=== PATIENT | female | born 1930 | race Caucasian/White ===

== ENCOUNTER 2016-11-27 22:08 | Observation (INO) | payer MEDICARE, OTHER ==
[2016-11-27] MEDS ORDERED: Sodium Chloride 0.9% 10 ML Syringe FLUSH PRN (22:50)
[2016-11-27] MEDS ORDERED: HYDROmorphone 0.5 MG/0.5 ML Syringe IVPUSH ONE (22:54)
--- NOTE | 2016-11-28 00:22 | EDM.PDOC ---
ED HPI GENERAL MEDICAL PROBLEM - General Chief Complaint: Lower Extremity Injury/Pain Stated Complaint: [facility] Time Seen by Provider: 11/27/16 22:22 Source of Information: Reports: Patient, EMS, Family History Limitations: Reports: No Limitations - History of Present Illness INITIAL COMMENTS - FREE TEXT/NARRATIVE: The patient was at home today and her right knee gave out and she fell backward. She did not hit her head and she has no headache or LOC. She denies any neck or back pain but she does have pain to both hips, knees and her left ankle. She recently saw Dr Rowley for bilateral wrist and hand pain. He is working her up for carpal tunnel syndrome. She has severe arthritis in her right knee. She has constant pain to her right leg. She denies fever, chills, chest pain, shortness of breath, nausea, vomiting or abdominal pain. Onset: Sudden Duration: Hour(s): (4pm) Location: Reports: Upper Extremity, Right (hip and knee), Lower Extremity, Left (hip, knee and ankle) Quality: Reports: Sharp Severity: Moderate Improves with: Reports: None Worsens with: Reports: None Context: Reports: Other (Her right knee gave out and she fell backward) Associated Symptoms: Reports: No Other Symptoms Left Feet Pain Score (Numeric/FACES): 9 - Related Data Allergies Allergy/AdvReac Type Severity Reaction Status Date / Time No Known Allergies Allergy Verified 11/27/16 22:13 Home Meds: Home Meds Bisacodyl [Dulcolax] 5 mg PO DAILY PRN 09/01/15 [History] Multivitamin [Multi-Vitamin Daily] 1 each PO DAILY 09/01/15 [History] Omeprazole 20 mg PO PCDINNER 09/01/15 [History] Potassium Chloride 20 meq PO 0700,1700 09/01/15 [History] Sennosides [Natural Vegetable Laxative] 8.6 mg PO BEDTIME PRN 09/01/15 [History] Apixaban [Eliquis] 2.5 mg PO BID 10/27/15 [History] Diltiazem [Cardizem CD] 180 mg PO DAILY 10/27/15 [History] Losartan [Cozaar] 25 mg PO DAILY 10/27/15 [History] LORazepam [Ativan] 1 mg PO Q6H PRN 12/15/15 [History] Torsemide [Demadex] 20 mg PO DAILY 12/15/15 [History] Colchicine [Colcrys] 0.3 mg PO DAILY #15 tablet 12/19/15 [Rx] Metoprolol Succinate [Toprol XL] 25 mg PO BID 03/19/16 [History] Naproxen [Naprosyn] 250 mg PO Q12HR PRN #10 tablet 03/19/16 [Rx] oxyCODONE HCl/Acetaminophen [oxyCODONE-Acetaminophen 5-325] 5 - 325 mg PO Q6H PRN 03/19/16 [History] Past Medical History HEENT History: Reports: Hard of Hearing, Impaired Vision Other HEENT History: has glasses "but I don't wear them very often". Glasses not brought to the hospital. 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: Musculoskeletal History: Reports: Back Pain, Chronic Other Musculoskeletal History: Chronic knee pain Psychiatric History: Reports: Other (See Below) Other Psychiatric History: pt has been on chronic pain medicine due to pain in knee Endocrine/Metabolic History: Reports: Diabetes, Type II - Infectious Disease History Infectious Disease History: Reports: Chicken Pox, Measles - Past Surgical History HEENT Surgical History: Reports: Cataract Surgery GI Surgical History: Reports: Appendectomy, Cholecystectomy Female Surgical History: Reports: Hysterectomy Musculoskeletal Surgical History: Reports: Arthroscopic Knee, Hip Replacement, Knee Replacement, Shoulder Surgery Social & Family History - Family History HEENT: Reports: None Musculoskeletal: Reports: Osteoarthritis Endocrine/Metabolic: Reports: Diabetes, Type I Oncologic: Reports: Bladder, Other (See Below) Other Oncologic Family History: 2 brothers and 1 sister had cancer, but unsure of type - Tobacco Use Smoking Status *Q: Never Smoker Second Hand Smoke Exposure: No - Caffeine Use Caffeine Use: Reports: Coffee - Recreational Drug Use Recreational Drug Use: No - Living Situation & Occupation Living situation: Reports: Occupation: Retired Review of Systems - Review of Systems Review Of Systems: See Below Constitutional: Reports: No Symptoms Eyes: Reports: No Symptoms Ears: Reports: No Symptoms Nose: Reports: No Symptoms Mouth/Throat: Reports: No Symptoms Respiratory: Reports: No Symptoms Cardiovascular: Reports: No Symptoms GI/Abdominal: Reports: No Symptoms Genitourinary: Reports: No Symptoms Musculoskeletal: Reports: Other (Bilateral hip and knee pain and left ankle pain ) ED EXAM, GENERAL - Physical Exam Exam: See Below Exam Limited By: No Limitations General Appearance: Alert, No Apparent Distress Ears: Normal External Exam Nose: Normal Inspection Head: Atraumatic, Normocephalic Neck: Normal Inspection Respiratory/Chest: No Respiratory Distress, Lungs Clear, Normal Breath Sounds Cardiovascular: Regular Rate, Rhythm, No Edema, No Murmur GI/Abdominal: Soft, Non-Tender, No Organomegaly, No Mass Extremities: Other (Pain upon palpation to both hips and both knees. She has pain upon palaption, ai and ecchymosis to her left ankle. She has good sensation and pulses distally.) Course - Vital Signs Last Recorded V/S: Last Vital Signs Temp 98.5 F 11/27/16 22:13 Pulse 91 11/27/16 22:13 Resp 16 11/27/16 22:13 BP 162/83 H 11/27/16 22:13 Pulse Ox 93 L 11/27/16 22:13 - Orders/Labs/Meds Orders: Active Orders 24 hr Category Date Time Status Peripheral IV Care [RC] . DIRECTED Care 11/27/16 22:51 Active Ankle Min 3V Lt [CR] Stat Exams 11/27/16 22:52 Taken Femur Min 2V Bi [CR] Stat Exams 11/27/16 22:52 Taken Pelvis 1V or 2V [CR] Stat Exams 11/27/16 22:53 Taken UA W/MICROSCOPIC [URIN] Stat Lab 11/27/16 23:56 Results Sodium Chloride 0.9% [Saline Flush] Med 11/27/16 22:50 Active 10 ml FLUSH ASDIRECTED PRN Peripheral IV Insertion Adult [OM.PC] Stat Oth 11/27/16 22:50 Ordered Medication Orders Sodium Chloride (Saline Flush) 10 ml FLUSH ASDIRECTED PRN PRN Reason: Keep Vein Open Last Admin: 11/27/16 23:04 Dose: 10 ml Labs: Laboratory Tests 11/27/16 11/27/16 11/27/16 Range/Units 23:10 23:10 23:10 WBC 12.47 H (3.98-10.04) K/mm3 RBC 4.33 (3.98-5.22) M/mm3 Hgb 14.9 (11.2-15.7) gm/L Hct 42.7 (34.1-44.9) % MCV 98.6 H (79.4-94.8) fl MCH 34.4 H (25.6-32.2) pg MCHC 34.9 (32.2-35.5) g/dl RDW Std Deviation 47.1 H (36.4-46.3) fL Plt Count 207 (182-369) K/mm3 MPV 9.7 (9.4-12.3) fl Neut % (Auto) 55.8 (34.0-71.1) % Lymph % (Auto) 29.7 (19.3-51.7) % [place] % (Auto) 11.8 (4.7-12.5) % Eos % (Auto) 1.8 (0.7-5.8) Baso % (Auto) 0.6 (0.1-1.2) % Neut # (Auto) 6.95 H (1.56-6.13) K/mm3 Lymph # (Auto) 3.70 (1.18-3.74) K/mm3 Davidson # (Auto) 1.47 H (0.24-0.36) K/mm3 Eos # (Auto) 0.23 (0.04-0.36) K/mm3 Baso # (Auto) 0.08 (0.01-0.08) K/mm3 ESR 9 (0-20) mm/hr Sodium 141 (136-145) mEq/L Potassium 3.6 (3.5-5.1) mEq/L Chloride 106 (98-107) mEq/L Carbon Dioxide 25 (21-32) mEq/L Anion Gap 13.6 (5-15) BUN 24 H (7-18) mg/dL Creatinine 1.7 H (0.55-1.02) mg/dL Est Cr Clr Drug Dosing 19.65 mL/min Estimated GFR (MDRD) 28 (>60) mL/min BUN/Creatinine Ratio 14.1 (14-18) Glucose 138 H (83-115) mg/dL Calcium 9.1 (8.5-10.1) mg/dL Total Bilirubin 0.4 (0.2-1.0) mg/dL AST 28 (15-37) U/L ALT 41 (14-59) U/L Alkaline Phosphatase 62 (46-116) U/L C-Reactive Protein < 0.2 (<1.0) mg/dL Total Protein 7.2 (6.4-8.2) g/dl Albumin 3.6 (3.4-5.0) g/dl Globulin 3.6 gm/dL Albumin/Globulin Ratio 1.0 (1-2) Urine Color (Yellow) Urine Appearance (Clear) Urine pH (5.0-8.0) Ur Specific Leonard (1.005-1.030) Urine Protein (Negative) Urine Glucose (UA) (Negative) Urine Ketones (Negative) Urine Occult Blood (Negative) Urine Nitrite (Negative) Urine Bilirubin (Negative) Urine Urobilinogen (0.2-1.0) Ur Leukocyte Esterase (Negative) Rheumatoid Factor Scrn (NEGATIVE) 11/27/16 11/27/16 Range/Units 23:10 23:56 WBC (3.98-10.04) K/mm3 RBC (3.98-5.22) M/mm3 Hgb (11.2-15.7) gm/L Hct (34.1-44.9) % MCV (79.4-94.8) fl MCH (25.6-32.2) pg MCHC (32.2-35.5) g/dl RDW Std Deviation (36.4-46.3) fL Plt Count (182-369) K/mm3 MPV (9.4-12.3) fl Neut % (Auto) (34.0-71.1) % Lymph % (Auto) (19.3-51.7) % Davidson % (Auto) (4.7-12.5) % Eos % (Auto) (0.7-5.8) Baso % (Auto) (0.1-1.2) % Neut # (Auto) (1.56-6.13) K/mm3 Lymph # (Auto) (1.18-3.74) K/mm3 Davidson # (Auto) (0.24-0.36) K/mm3 Eos # (Auto) (0.04-0.36) K/mm3 Baso # (Auto) (0.01-0.08) K/mm3 ESR (0-20) mm/hr Sodium (136-145) mEq/L Potassium (3.5-5.1) mEq/L Chloride (98-107) mEq/L Carbon Dioxide (21-32) mEq/L Anion Gap (5-15) BUN (7-18) mg/dL Creatinine (0.55-1.02) mg/dL Est Cr Clr Drug Dosing mL/min Estimated GFR (MDRD) (>60) mL/min BUN/Creatinine Ratio (14-18) Glucose (83-115) mg/dL Calcium (8.5-10.1) mg/dL Total Bilirubin (0.2-1.0) mg/dL AST (15-37) U/L ALT (14-59) U/L Alkaline Phosphatase (46-116) U/L C-Reactive Protein (<1.0) mg/dL Total Protein (6.4-8.2) g/dl Albumin (3.4-5.0) g/dl Globulin gm/dL Albumin/Globulin Ratio (1-2) Urine Color Yellow (Yellow) Urine Appearance Clear (Clear) Urine pH 5.5 (5.0-8.0) Ur Specific Leonard 1.015 (1.005-1.030) Urine Protein Negative (Negative) Urine Glucose (UA) Negative (Negative) Urine Ketones Negative (Negative) Urine Occult Blood 1+ H (Negative) Urine Nitrite Negative (Negative) Urine Bilirubin Negative (Negative) Urine Urobilinogen 0.2 (0.2-1.0) Ur Leukocyte Esterase Negative (Negative) Rheumatoid Factor Scrn Negative (NEGATIVE) Meds: Medications Generic Name Dose Route Start Last Admin Trade Name Freq PRN Reason Stop Dose Admin Sodium Chloride 10 ml 11/27/16 22:50 11/27/16 23:04 Saline Flush FLUSH 10 ml ASDIRECTED PRN Administration Keep Vein Open Discontinued Medications Generic Name Dose Route Start Last Admin Trade Name Freq PRN Reason Stop Dose Admin Hydromorphone HCl 0.5 mg 11/27/16 22:54 11/27/16 23:03 Dilaudid IVPUSH 11/27/16 22:55 0.5 mg ONETIME ONE Administration - Re-Assessments/Exams Free Text/Narrative Re-Assessment/Exam: 11/28/16 00:21 I ordered an IV saline lock, dilaudid 0.5mg IV, labs and x-rays. 11/28/16 00:27 The x-ray of her pelvis was negative for fracture. The bilateral x-ray of her femurs show the hip and knee prosthesis on the right and arthritis to the left hip and knee with no fracture. He left ankle shows no fracture. Her WBC was elevated at 12.47. Her ESR and CRP were negative. Her creatinine was elevated at 1.7. Her rheumatoid factor was negative. Her UA shows no UTI. She feels better as long as she is not moving. I do not think at this point I can get her up to walk. I feel she will need to be admitted. I called Dr Low and he agreed to the admission. 11/28/16 00:41 With the dilaudid her oxygen saturations dropped and she needed 2L of oxygen per nasal cannula. Departure - Departure Time of Disposition: 00:45 Disposition: Refer to Observation Condition: Good Clinical Impression: Intractable pain, Osteoarthritis involving multiple joints on both sides of body, Renal insufficiency, Hypoxia Fall Qualifiers: Encounter type: initial encounter Qualified Code(s): W19.XXXA - Unspecified fall, initial encounter Left ankle sprain Qualifiers: Encounter type: initial encounter Involved ligament of ankle: unspecified ligament Qualified Code(s): S93.402A - Sprain of unspecified ligament of left ankle, initial encounter - Discharge Information Forms: ED Department Discharge - My Orders Last 24 Hours: My Active Orders 11/27/16 22:50 Sodium Chloride 0.9% [Saline Flush] 10 ml FLUSH ASDIRECTED PRN Peripheral IV Insertion Adult [OM.PC] Stat 11/27/16 22:51 Peripheral IV Care [RC] . DIRECTED 11/27/16 22:52 Ankle Min 3V Lt [CR] Stat Femur Min 2V Bi [CR] Stat 11/27/16 22:53 Pelvis 1V or 2V [CR] Stat 11/27/16 23:56 UA W/MICROSCOPIC [URIN] Stat - Assessment/Plan Last 24 Hours: My Active Orders 11/27/16 22:50 Sodium Chloride 0.9% [Saline Flush] 10 ml FLUSH ASDIRECTED PRN Peripheral IV Insertion Adult [OM.PC] Stat 11/27/16 22:51 Peripheral IV Care [RC] . DIRECTED 11/27/16 22:52 Ankle Min 3V Lt [CR] Stat Femur Min 2V Bi [CR] Stat 11/27/16 22:53 Pelvis 1V or 2V [CR] Stat 11/27/16 23:56 UA W/MICROSCOPIC [URIN] Stat
[2016-11-28] MEDS ORDERED: HYDROmorphone 0.5 MG/0.5 ML Syringe IVPUSH ONE (00:51)
[2016-11-28] MEDS ORDERED: Acetaminophen 325 MG Tab PO PRN ×2 (01:42→08:26)
[2016-11-28] MEDS: HYDROmorphone 0.5 MG/0.5 ML Syringe IVPUSH PRN ×5 (03:05→20:19)
--- NOTE | 2016-11-28 08:08 | CR ---
Left ankle: Four views of the left ankle were obtained. Comparison: No previous ankle study. Plantar spur is seen. Spur noted at the attachment of the Achilles tendon to the calcaneus. Vascular calcification is seen. Ankle mortise is symmetric. No discrete fracture, dislocation or other bony abnormality is seen. Impression: 1. Calcaneal spurs. 2. No acute bony abnormality is identified. Diagnostic code #2
--- NOTE | 2016-11-28 08:08 | CR ---
Pelvis: AP view of the pelvis was obtained. Comparison: No previous pelvis exam. Right hip prosthesis is seen. Minimal joint space narrowing is seen with left hip with minimal osteophytes. Mild degenerative change is partially visualized within the lower lumbar spine. Bony structures are osteopenic. No acute fracture or other abnormality is appreciated. Impression: 1. Incidental findings. Nothing acute is appreciated on AP pelvis study. Diagnostic code #2
--- NOTE | 2016-11-28 08:08 | CR ---
Bilateral femurs: AP and lateral views of both femurs were obtained. Comparison: No femur study. Right hip prosthesis is seen. Right knee prosthesis is noted. Mild vascular calcification is present. Mild degenerative change is seen within the left hip as well as medial joint space narrowing with the left knee with lateral and medial osteophytes noted within the left knee. Bony structures are somewhat osteopenic. No acute fracture or other abnormality is seen. Impression: 1. Right hip prosthesis and knee prosthesis. Degenerative change is noted within the left hip and left knee. 2. Nothing acute is appreciated on two-view bilateral femur study. Diagnostic code #2
--- NOTE | 2016-11-28 08:23 | PCM.HP ---
H&P History of Present Illness - General Date of Service: 11/28/16 Admit Problem/Dx: Admission Diagnosis/Problem Admission Diagnosis/Problem Fall Source of Information: Patient, Old Records, Provider, RN Notes Reviewed History Limitations: Reports: Altered Mental Status, Physical Impairment - History of Present Illness Initial Comments - Free Text/Narative: This is an 86 year-old elderly white female with past medical history of chronic atrial fibrillation on eliquis, hypertension, hyperlipidemia, gout, chronic shortness of breath, constipation, history of hemorrhoids, Advanced DJD/ OA, Osteoporosis, Chronic Pain Syndrome and DM2, who presented to the emergency department with complaints of lower extremity pain after she fell from a standing position. Per family, the patient's right knee gave out and right after that she fell backward. The incident took place while she was at home. She denies any prodromal symptoms. No loss of consciousness. She further denies any complaints of neck or back pain. However she admits to having hips, knees and left ankle pain. Patient carries a history of advanced DJD and severe OA. She has had surgeries on her right hip and knee in the past. Currently she is being evaluated for bilateral carpal tunnel syndrome. She has been scheduled to see Dr. Rowley for further evaluation her right knee. Patient is familiar to me from previous admission about a year ago elated to cellulitis and possible gout (hyperuricemia). Her initial workup in the emergency department shows a CBC significant for WBC of 12.47, and neutrophils of 6.95. Her ESR is 9 and CRP is < 0.2. Her chemistry is unremarkable except for BUN of 24, creatinine of 1.7 and BS of 138. Her rheumatoid factor is negative. UA is unremarkable for urinary tract infection. All her imaging studies revealed no acute abnormal findings. Patient is being admitted under observation for medical management of intractable pain status post fall and ankle sprain. She is full code. Left Feet Pain Score (Numeric/FACES): 9 Left Knee Pain Score (Numeric/FACES): 5 - Related Data Allergies/Adverse Reactions: Allergies Allergy/AdvReac Type Severity Reaction Status Date / Time No Known Allergies Allergy Verified 11/27/16 22:13 Home Medications: Home Meds Bisacodyl [Dulcolax] 5 mg PO DAILY PRN 09/01/15 [History] Multivitamin [Multi-Vitamin Daily] 1 each PO DAILY 09/01/15 [History] Omeprazole 20 mg PO PCDINNER 09/01/15 [History] Potassium Chloride 20 meq PO 0700,1700 09/01/15 [History] Sennosides [Natural Vegetable Laxative] 8.6 mg PO BEDTIME PRN 09/01/15 [History] Apixaban [Eliquis] 2.5 mg PO BID 10/27/15 [History] Diltiazem [Cardizem CD] 180 mg PO DAILY 10/27/15 [History] Losartan [Cozaar] 25 mg PO DAILY 10/27/15 [History] LORazepam [Ativan] 1 mg PO Q6H PRN 12/15/15 [History] Torsemide [Demadex] 20 mg PO DAILY 12/15/15 [History] Colchicine [Colcrys] 0.3 mg PO DAILY #15 tablet 12/19/15 [Rx] Metoprolol Succinate [Toprol XL] 25 mg PO BID 03/19/16 [History] oxyCODONE HCl/Acetaminophen [oxyCODONE-Acetaminophen 5-325] 5 - 325 mg PO Q6H PRN 03/19/16 [History] Past Medical History HEENT History: Reports: Hard of Hearing, Impaired Vision Other HEENT History: has glasses "but I don't wear them very often". Glasses not brought to the hospital. 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: Musculoskeletal History: Reports: Back Pain, Chronic Other Musculoskeletal History: Chronic knee pain Neurological History: Reports: Vertigo Psychiatric History: Reports: Anxiety, Other (See Below) Other Psychiatric History: pt has been on chronic pain medicine due to pain in knee and lorazepam for anxiety Endocrine/Metabolic History: Reports: Diabetes, Type II Hematologic History: Reports: None Immunologic History: Reports: None - Infectious Disease History Infectious Disease History: Reports: Chicken Pox, Measles - Past Surgical History Head Surgeries/Procedures: Reports: None HEENT Surgical History: Reports: Cataract Surgery Cardiovascular Surgical History: Reports: None Respiratory Surgical History: Reports: None GI Surgical History: Reports: Appendectomy, Cholecystectomy Female Surgical History: Reports: Hysterectomy Neurological Surgical History: Reports: C-Spine Musculoskeletal Surgical History: Reports: Arthroscopic Knee, Hip Replacement, Knee Replacement, Shoulder Surgery Social & Family History - Family History HEENT: Reports: None Cardiac: Reports: None Musculoskeletal: Reports: Osteoarthritis Endocrine/Metabolic: Reports: Diabetes, Type I Oncologic: Reports: Bladder, Other (See Below) Other Oncologic Family History: 2 brothers and 1 sister had cancer, but unsure of type - Tobacco Use Smoking Status *Q: Never Smoker Second Hand Smoke Exposure: No - Caffeine Use Caffeine Use: Reports: Coffee - Recreational Drug Use Recreational Drug Use: No Drug Use in Last 12 Months: No - Living Situation & Occupation Living situation: Reports: Occupation: Retired H&P Review of Systems - Review of Systems: Review Of Systems: See Below General: Reports: Weakness, Other (somewhat sedated ). Denies: Fever, Chills, Malaise, Fatigue, Night Sweats HEENT: Reports: No Symptoms Pulmonary: Denies: Shortness of Breath Cardiovascular: Denies: Chest Pain, Palpitations, Dyspnea on Exertion, Lightheadedness Gastrointestinal: Denies: Abdominal Pain, Nausea, Vomiting Genitourinary: Reports: No Symptoms Musculoskeletal: Reports: Hand Pain, Joint Pain, Other (left knee and ankle pain w/ edema) Skin: Denies: Cyanosis, Bruising, Erythema Psychiatric: Denies: Confusion, Depression, Agitation, Suicidal Ideation Neurological: Reports: Difficulty Walking, Weakness, Gait Disturbance. Denies: Confusion, Dizziness, Syncope Hematologic/Lymphatic: Reports: No Symptoms Immunologic: Reports: No Symptoms Exam - Exam Exam: See Below - Vital Signs Vital Signs: Last Vital Signs Temp 36.8 C 11/28/16 03:56 Pulse 72 11/28/16 03:56 Resp 14 11/28/16 03:56 BP 103/75 11/28/16 03:56 Pulse Ox 96 11/28/16 03:56 Weight: 87.543 kg - Exam General: Alert, Cooperative, Mild Distress HEENT: Conjunctiva Clear, EACs Clear, Hearing Intact, Mucosa Moist & [place], Nares Patent, Normal Nasal Septum, Posterior Pharynx Clear, Pupils Equal, Pupils Reactive, TMs Clear Neck: Supple, Trachea Midline, Full Range of Motion Lungs: Normal Respiratory Effort, Decreased Breath Sounds Cardiovascular: Regular Rate, Regular Rhythm Abdomen: Normal Bowel Sounds, Soft. No: Organomegaly, Peritoneal Signs, Tenderness (Female) Exam: Deferred Rectal (Female) Exam: Deferred Back Exam: Normal Inspection, Decreased Range of Motion, Vertebral Tenderness Extremities: Normal Inspection, Normal Pulses, Edema (at the ankle), Other ( right knee surgical car) Peripheral Pulses: 2+: Posterior Tibial (L), Posterior Tibial (R), Dorsalis Pedis (L), Dorsalis Pedis (R) Skin: Warm, Dry, Intact Neuro Extensive - Mental Status: Normal Mood/Affect, Memory Intact, Slow Response to Commands Neuro Extensive - Motor, Sensory, Reflexes: CN II-XII Intact (limited due to sedation from pain medication), Abnormal Gait Psychiatric: Normal Affect, Normal Mood. No: Suicidal Ideation, Homicidal Ideation, Hallucinations - Patient Data Result Diagrams: 11/27/16 23:10 11/27/16 23:10 *Q Meaningful Use (ADM) - VTE *Q VTE Criteria *Q: - Stroke *Q Stroke Criteria *Q: - AMI *Q AMI Criteria *Q: Problem List Initiated/Reviewed/Updated: Yes Orders Last 24hrs: Active Orders 24 hr Category Date Time Status Admission Status [Patient Status] [ADT] Routine ADT 11/28/16 03:53 Active Bedrest [RC] ASDIRECTED Care 11/28/16 01:48 Active Oxygen Therapy Adult [Oxygen Therapy] [RC] ASDIRECTED Care 11/28/16 03:24 Active Cardiac [Heart Healthy Diet] [DIET] Diet 11/28/16 Breakfast Active Acetaminophen [Tylenol] Med 11/28/16 01:42 Active 975 mg PO Q4H PRN HYDROmorphone [Dilaudid] Med 11/28/16 01:39 Active 0.5 mg IVPUSH Q2H PRN Medication Orders Acetaminophen (Tylenol) 975 mg PO Q4H PRN PRN Reason: Pain/Fever Hydromorphone HCl (Dilaudid) 0.5 mg IVPUSH Q2H PRN PRN Reason: Pain Last Admin: 11/28/16 06:22 Dose: 0.5 mg Admin: 11/28/16 03:05 Dose: 0.5 mg Sodium Chloride (Saline Flush) 10 ml FLUSH ASDIRECTED PRN PRN Reason: Keep Vein Open Last Admin: 11/27/16 23:04 Dose: 10 ml Assessment/Plan Comment:: Assessment/Plan: Acute: Acute on Chronic Pain/Intractable - S/p Fall - Risk Factors: Advanced DJD/OA - Pain Medication Left Knee DJD/OA - XR shows negative for acute fracture - Lidocaine patch daily Chronic Hip DJD/OA - Pelvis XR shows no acute fracture - Femur XR: Right Hip and Knee prostheses. No acute appreciated Left Ankle Sprain w/ mild edema - S/p Fall - XR 4 views: calcaneal spurs. No acute bony abnormality identified - Conservative management Gait Instability - Has weak left knee - Scheduled to see Dr. Rowley for further eval - PT/OT consult Chronic: A-Fib on Eliquis, HR controlled HTN HLD Constipation DJD/OA CKD Stage 4 Pain Syndrome DM2 Gout H/o Opioid Withdrawal Hc/o Bilateral CTS-currently being followed by Dr. Rowley Plan: Admit to OBS Routine AM labs Resume Home Meds High Fall Risk PT/OT consult SW/CM for d/c planning Neck MRI w/o contrast per family's request (she is scheduled to get it done in am as an outpatient) Code status:1
[2016-11-28] MEDS ORDERED: LORazepam 2 MG/ML MDV IV PRN (08:26)
[2016-11-28] MEDS ORDERED: Promethazine 12.5 MG in Sodium Chloride 0.9% 50 ML IV PRN (08:26)
[2016-11-28] MEDS ORDERED: Polyethylene Glycol 3350 Powder 17 GM Packet PO PRN (08:26)
[2016-11-28] MEDS ORDERED: Metoprolol Tartrate 5 MG/5 ML SDV IVPUSH PRN (08:26)
[2016-11-28] MEDS ORDERED: Bisacodyl 5 MG Tab PO PRN (08:26)
[2016-11-28] MEDS ORDERED: Albuterol 0.083% 2.5 MG/3 ML Neb Soln NEB PRN (08:26)
[2016-11-28] MEDS ORDERED: Ondansetron 4 MG/2 ML SDV IV PRN (08:26)
[2016-11-28] MEDS ORDERED: SENNOSIDES 8.6 MG PO PRN (08:30)
[2016-11-28] MEDS ORDERED: BISACODYL 5 MG PO PRN (08:30)
[2016-11-28] MEDS: Acetaminophen/HYDROcodone 325-5 MG Tab PO PRN ×2 (11:12→16:58)
[2016-11-28] MEDS: COLCHICINE 0.6 MG PO SCH (12:25)
[2016-11-28] MEDS: DILTIAZEM 180 MG PO SCH (12:26)
[2016-11-28] MEDS: ELIQUIS PO SCH ×2 (12:28→20:20)
[2016-11-28] MEDS: MULTIVITAMIN PO SCH (12:48)
[2016-11-28] MEDS: [UNRECOGNIZED DRUG - OTHER] PO SCH (12:48)
[2016-11-28] MEDS: LOSARTAN 25 MG PO SCH (12:48)
[2016-11-28] MEDS ORDERED: Lidocaine 5% 700 MG Patch TOP SCH (13:00)
[2016-11-28] MEDS: hydrALAZINE 20 MG/ML SDV IVPUSH PRN (16:58)
[2016-11-28] MEDS: Cyclobenzaprine 10 MG Tab PO PRN (22:19)
[2016-11-29] MEDS: Acetaminophen/HYDROcodone 325-5 MG Tab PO PRN ×4 (04:25→18:31)
[2016-11-29] MEDS: hydrALAZINE 20 MG/ML SDV IVPUSH PRN (05:34)
[2016-11-29] MEDS: COLCHICINE 0.6 MG PO SCH (08:14)
[2016-11-29] MEDS: DILTIAZEM 180 MG PO SCH (08:16)
[2016-11-29] MEDS: ELIQUIS PO SCH ×2 (08:17→20:13)
[2016-11-29] MEDS: MULTIVITAMIN PO SCH (08:21)
[2016-11-29] MEDS: [UNRECOGNIZED DRUG - OTHER] PO SCH (08:21)
[2016-11-29] MEDS: LOSARTAN 25 MG PO SCH (08:22)
--- NOTE | 2016-11-29 12:26 | PCM.PN ---
- General Info Date of Service: 11/29/16 Admission Dx/Problem (Free Text): Admission Diagnosis/Problem Admission Diagnosis/Problem Fall Subjective Update: Follow Up Functional Status: Reports: tolerating diet, urinating. Denies: pain controlled , new symptoms - Review of Systems General: Denies: Fever, Weakness, Fatigue, Malaise, Chills HEENT: Reports: no symptoms Pulmonary: Denies: shortness of breath Cardiovascular: Denies: Chest Pain Gastrointestinal: Denies: Abdominal pain, Nausea, Vomiting Genitourinary: Reports: no symptoms Musculoskeletal: Reports: neck pain, leg pain, joint pain (diffuse), other ( left ankle pain) Skin: Reports: bruising (left teresita) Neurological: Reports: Difficulty Walking, Gait Disturbance. Denies: Confusion , Weakness Psychiatric: Denies: depression, anxiety, agitation, hallucinations Systems Review Comment:: She is about the same. Her pain is fairly controlled. She was given lidocaine patch but developed burning sensation. She is tolerating low dose muscle relanxant. She has no other acute issues. - Patient Data Vitals - most recent: Last Vital Signs Temp 36.6 C 11/29/16 08:00 Pulse 66 11/29/16 08:00 Resp 16 11/29/16 08:00 BP 158/73 H 11/29/16 08:00 Pulse Ox 95 11/29/16 08:00 Weight - most recent: 87.543 kg I&O - last 24 hours: Intake & Output 11/28/16 11/29/16 11/29/16 22:59 06:59 14:59 Intake Total 680 950 90 Output Total 750 1050 Balance -70 -100 90 Lab Results last 24 hrs: Laboratory Results - last 24 hr 11/29/16 11/29/16 Range/Units 05:07 05:07 WBC 10.37 H (3.98-10.04) K/mm3 RBC 4.10 (3.98-5.22) M/mm3 Hgb 13.9 (11.2-15.7) gm/L Hct 41.0 (34.1-44.9) % MCV 100.0 H (79.4-94.8) fl MCH 33.9 H (25.6-32.2) pg MCHC 33.9 (32.2-35.5) g/dl RDW Std Deviation 48.7 H (36.4-46.3) fL Plt Count 198 (182-369) K/mm3 MPV 9.7 (9.4-12.3) fl Neut % (Auto) 48.7 (34.0-71.1) % Lymph % (Auto) 35.2 (19.3-51.7) % [place] % (Auto) 11.5 (4.7-12.5) % Eos % (Auto) 3.7 (0.7-5.8) Baso % (Auto) 0.6 (0.1-1.2) % Neut # (Auto) 5.06 (1.56-6.13) K/mm3 Lymph # (Auto) 3.65 (1.18-3.74) K/mm3 [place] # (Auto) 1.19 H (0.24-0.36) K/mm3 Eos # (Auto) 0.38 H (0.04-0.36) K/mm3 Baso # (Auto) 0.06 (0.01-0.08) K/mm3 Sodium 140 (136-145) mEq/L Potassium 3.5 (3.5-5.1) mEq/L Chloride 104 (98-107) mEq/L Carbon Dioxide 25 (21-32) mEq/L Anion Gap 14.5 (5-15) BUN 22 H (7-18) mg/dL Creatinine 1.6 H (0.55-1.02) mg/dL Est Cr Clr Drug Dosing 20.88 mL/min Estimated GFR (MDRD) 31 (>60) mL/min BUN/Creatinine Ratio 13.8 L (14-18) Glucose 130 H (83-115) mg/dL Calcium 9.0 (8.5-10.1) mg/dL Magnesium 1.6 L (1.8-2.4) mg/dl Med Orders - Current: Current Medications Acetaminophen (Tylenol) 650 mg PO Q4H PRN PRN Reason: Pain (Mild 1-3)/fever Hydrocodone Bitart/Acetaminophen ([place] 325-5 Mg) 1 tab PO Q4H PRN PRN Reason: Pain (moderate 4-6) Last Admin: 11/29/ 08:30 Dose: 1 tab Albuterol (Proventil Neb Soln) 2.5 mg NEB Q2H PRN PRN Reason: Shortness Of Breath/wheezing Bisacodyl (Dulcolax) 5 mg PO DAILY PRN PRN Reason: Constipation Cyclobenzaprine HCl (Flexeril) 5 mg PO TID PRN PRN Reason: Pain Last Admin: 11/28/16 22:19 Dose: 5 mg Diclofenac Sodium (Voltaren 1% Gel) 0 gm TOP QID [facility] Hydralazine HCl (Apresoline) 10 mg IVPUSH Q4H PRN PRN Reason: Hypertension Last Admin: 11/29/16 05:34 Dose: 10 mg Hydromorphone HCl (Dilaudid) 0.25 mg IVPUSH Q4H PRN PRN Reason: Pain (severe 7-10) Promethazine HCl 12.5 mg/ (Sodium Chloride) 50.5 mls @ 100 mls/hr IV Q6H PRN PRN Reason: Nausea/Vomiting Lorazepam (Ativan) 0.25 mg IV Q6H PRN PRN Reason: Anxiety Magnesium Oxide (Magnesium Oxide) 400 mg PO TID [facility] Stop: 11/29/16 21:01 Magnesium Sulfate (Pharmacy To Dose - Magnesium Replacement) 0 dose .XX ASDIRECTED PRN PRN Reason: RX TO MONITOR MAG LEVELS Metoprolol Tartrate (Lopressor) 5 mg IVPUSH Q4H PRN PRN Reason: Tachycardia Ondansetron HCl (Zofran) 4 mg IV Q6H PRN PRN Reason: Nausea/Vomiting Eliquis (Apixaban 2. (5 Mg)) 0 each PO BID [facility] Last Admin: 11/29/16 08:17 Dose: 1 each Colchicine [Colcrys] (0.6 Mg) 0 each PO DAILY [facility] Last Admin: 11/29/16 08:14 Dose: 0.5 each Diltiazem Er 180 Mg (Tablet) 0 each PO DAILY [facility] Last Admin: 11/29/16 08:16 Dose: 1 each Lorazepam 1 Mg 0 each PO Q6H PRN PRN Reason: jitters Losartan [Cozaar] 25 (Mg) 0 each PO DAILY [facility] Last Admin: 11/29/16 08:22 Dose: 1 each Metoprolol Tartrate (50 Mg) 0 each PO BID [facility] Last Admin: 11/29/16 08:21 Dose: 0.5 each Women's One A Day (Multivitamin Tab) 0 each PO DAILY [facility] Last Admin: 11/29/16 08:21 Dose: 1 each Omeprazole 20 Mg 0 each PO PCDINNER [facility] Last Admin: 11/28/16 18:03 Dose: 1 each Potassium Chloride (20 Meq) 0 each PO BIDMEALS [facility] Last Admin: 11/29/16 06:12 Dose: 1 each Sennosides [Natural Vegetable Laxative] 8.6 Mg 0 each PO BEDTIME PRN PRN Reason: Constipation Torsemide 20 Mg 0 each PO DAILY [facility] Last Admin: 11/29/16 08:19 Dose: 1 each Potassium Chloride (20 Meq Tabs) 0 each PO BID@1200,1700 [facility] Stop: 11/29/16 17:01 Polyethylene Glycol (Miralax) 17 gm PO DAILY PRN PRN Reason: Constipation Potassium Chloride (Pharmacy To Dose - Potassium Replacement) 0 dose .XX ASDIRECTED PRN PRN Reason: RX TO MONITOR K LEVELS Senna/Docusate Sodium (Senna Plus) 1 tab PO BID PRN PRN Reason: Constipation Sodium Chloride (Saline Flush) 10 ml FLUSH ASDIRECTED PRN PRN Reason: Keep Vein Open Last Admin: 11/27/16 23:04 Dose: 10 ml Temazepam (Restoril) 7.5 mg PO BEDTIME PRN PRN Reason: Sleep Discontinued Medications Acetaminophen (Tylenol) 975 mg PO Q4H PRN PRN Reason: Pain/Fever Hydromorphone HCl (Dilaudid) 0.5 mg IVPUSH ONETIME ONE Stop: 11/27/16 22:55 Last Admin: 11/27/16 23:03 Dose: 0.5 mg Hydromorphone HCl (Dilaudid) 0.5 mg IVPUSH ONETIME ONE Stop: 11/28/16 00:52 Last Admin: 11/28/16 00:56 Dose: 0.5 mg Hydromorphone HCl (Dilaudid) 0.5 mg IVPUSH Q2H PRN PRN Reason: Pain Last Admin: 11/28/16 20:19 Dose: 0.5 mg Lidocaine (Lidoderm 5%) 700 mg TOP Q24H [facility] Last Admin: 11/28/16 14:23 Dose: 700 mg Miscellaneous Information (Remove Patch) 0 ea TRDERM Q24H [facility] Non-Formulary Medication (Bisacodyl [Dulcolax]) 5 mg PO DAILY PRN PRN Reason: Constipation - Exam General: alert, oriented, cooperative, no acute distress HEENT: Pupils equal, Pupils reactive, EOMI, Mucous membr. moist/pink Neck: trachea midline, no JVD, no thyromegaly Lungs: Clear to auscultation, Normal respiratory effort, Decreased breath sounds Cardiovascular: Regular Rate, Regular Rhythm Abdomen: bowel sounds present, soft, no tenderness, no distension (Female) Exam: Deferred Back Exam: Normal Inspection, Decreased Range of Motion Extremities: no edema, normal pulses, no tenderness/swelling, no clubbing, no cyanosis, no calf tenderness Peripheral Pulses: 2+: Dorsalis Pedis (L), Dorsalis Pedis (R) Skin: warm, dry, intact Neurological: no new focal deficit Psy/Mental Status: alert, normal affect, normal mood - Problem List Review Problem List Initiated/Reviewed/Updated: Yes - My Orders Last 24 Hours: My Active Orders 11/28/16 12:00 Patient's Own Medication [Ptom] 0 each PO BID Patient's Own Medication [Ptom] 0 each PO BID Patient's Own Medication [Ptom] 0 each PO BIDMEALS Patient's Own Medication [Ptom] 0 each PO DAILY Patient's Own Medication [Ptom] 0 each PO DAILY Patient's Own Medication [Ptom] 0 each PO DAILY Patient's Own Medication [Ptom] 0 each PO DAILY Patient's Own Medication [Ptom] 0 each PO DAILY Patient's Own Medication [Ptom] 0 each PO Q6H PRN 11/28/16 19:00 Patient's Own Medication [Ptom] 0 each PO PCDINNER 11/28/16 21:00 Temazepam [Restoril] 7.5 mg PO BEDTIME PRN 11/28/16 21:59 Cyclobenzaprine [Flexeril] 5 mg PO TID PRN 11/29/16 10:30 Magnesium Rep Pharmacy to Dose [Pharmacy to Dose - Magnesium Replacement] 0 dose .XX ASDIRECTED PRN Potassium Rep Pharmacy to Dose [Pharmacy to Dose - Potassium Replacement] 0 dose .XX ASDIRECTED PRN 11/29/16 11:00 Magnesium Oxide 400 mg PO TID 11/29/16 11:48 Ice Therapy [OM.PC] Routine 11/29/16 12:00 Patient's Own Medication [Ptom] 0 each PO BID@1200,1700 11/29/16 13:00 Diclofenac Sodium [Voltaren 1% Gel] 0 gm TOP QID 11/29/16 14:30 Cervical Spine Comp wo Cont [MR] Routine - Plan Plan:: Assessment/Plan: Acute: Acute on Chronic Pain/Intractable - S/p Fall - Risk Factors: Advanced DJD/OA - Pain Medication Left Knee DJD/OA - XR shows negative for acute fracture - Discontinued Lidocaine patch - Will try voltaren gel topical Chronic Hip DJD/OA - Pelvis XR shows no acute fracture - Femur XR: Right Hip and Knee prostheses. No acute appreciated Left Ankle Sprain w/ mild edema and bruising - S/p Fall - XR 4 views: calcaneal spurs. No acute bony abnormality identified - Conservative management: leg elevation and cold compress to apply TID Gait Instability - Has weak left knee - Scheduled to see Dr. 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 Graves in [place]. My understanding was, she was tried on multiple medications in the past, even with intra-articular injection but w/o much success. She was also put on low dose fentanyl patch but developed withdrawal to it. She has been off fentanyl for over a year now.
[2016-11-29] MEDS: Magnesium Oxide 400 MG Tab PO SCH ×3 (12:38→20:11)
[2016-11-29] MEDS: POTASSIUM CHLORIDE 20 MEQ PO SCH ×2 (12:40→16:19)
[2016-11-29] MEDS: Diclofenac Sodium 1% Gel 100 GM Tube TOP SCH ×3 (12:41→20:15)
[2016-11-29] MEDS: HYDROmorphone 0.5 MG/0.5 ML Syringe IVPUSH PRN (13:52)
--- NOTE | 2016-11-29 15:18 | MR ---
MRI cervical spine Technique: T2 gradient echo axial images were obtained from above the C2-C3 disc inferiorly through C7-T1 discs. T1 and T2-weighted sagittal images were obtained through the cervical spine. Comparison: No previous cervical spine imaging. Findings: C1-C2: Neural foramina are patent. Bony spur appears to be off the right side of the lateral mass projecting into the right anterior thecal sac. This indents the thecal sac but does appear to cause any cervical cord impingement. C3-C4: Previous surgery at C3-C4 causes artifact. Neural foramina are not well seen due to this artifact but I believe that the left side is patent. There may be minimal right-sided neural foraminal stenosis. No central canal stenosis is seen. C4-C5: Mild disc space narrowing is seen. Posterior spurring and diffuse posterior disc bulge is seen. Mild to moderate central canal stenosis is seen. Neural foramina are felt to be patent. C5-C6: Mild diffuse posterior disc bulge is seen effacing the anterior thecal sac. No central canal stenosis felt to be present. Neural foramina are fairly well patent. C6-C7: Mild spondylolisthesis is seen presumably due to degenerative apophyseal change. The spondylolisthesis causes diffuse posterior disc bulging. Findings cause severe central canal stenosis. Neural foramina are patent. C7-T1: Posterior disc is preserved. No central canal stenosis or neural foraminal stenosis is seen. T1-T2: Posterior disc is maintained. No central canal stenosis or neural foraminal stenosis is seen. T2-T3 and T3-T4: Posterior discs are maintained. No central canal stenosis or neural foraminal stenosis is seen. Anterior disc bulging is seen throughout the cervical spine and upper visualized thoracic spine. Cervical cord shows no abnormal signal. Impression: 1. Diffuse degenerative change as described above. Most prominent finding is severe central canal stenosis at C6-C7. Diagnostic code #3
[2016-11-29] MEDS: oxyCODONE ER 10 MG TAB.ER PO SCH (20:11)
[2016-11-30] MEDS: Acetaminophen/oxyCODONE 325-5 MG Tab PO PRN ×3 (07:16→18:00)
--- NOTE | 2016-11-30 07:39 | PCM.PN ---
- General Info Date of Service: 11/30/16 Admission Dx/Problem (Free Text): Admission Diagnosis/Problem Admission Diagnosis/Problem Fall Subjective Update: Follow Up Functional Status: Reports: pain controlled, tolerating diet, urinating. Denies : ambulating, new symptoms - Review of Systems General: Reports: Fever, Weakness. Denies: Fatigue, Malaise, Chills HEENT: Reports: no symptoms Pulmonary: Denies: shortness of breath Cardiovascular: Denies: Chest Pain, Palpitations, Dyspnea on Exertion Gastrointestinal: Denies: Abdominal pain, Nausea, Vomiting Genitourinary: Reports: no symptoms Musculoskeletal: Reports: neck pain, hand pain, back pain, joint pain, joint swelling Skin: Reports: bruising. Denies: cyanosis Neurological: Reports: Difficulty Walking, Weakness, Gait Disturbance. Denies: Confusion Psychiatric: Denies: depression, anxiety, agitation, hallucinations Systems Review Comment:: No overnight issues. She is doing okay. She is one person assist and pivots with movement. Her pain is a bit better. She has no new complaints. - Patient Data Vitals - most recent: Last Vital Signs Temp 36.8 C 11/30/16 02:28 Pulse 64 11/30/16 02:28 Resp 16 11/30/16 02:28 BP 133/84 11/30/16 02:28 Pulse Ox 95 11/30/16 02:28 Weight - most recent: 85.684 kg I&O - last 24 hours: Intake & Output 11/29/16 11/30/16 11/30/16 22:59 06:59 14:59 Intake Total 500 600 Output Total 850 350 Balance -350 250 Med Orders - Current: Current Medications Acetaminophen (Tylenol) 650 mg PO Q4H PRN PRN Reason: Pain (Mild 1-3)/fever Albuterol (Proventil Neb Soln) 2.5 mg NEB Q2H PRN PRN Reason: Shortness Of Breath/wheezing Bisacodyl (Dulcolax) 5 mg PO DAILY PRN PRN Reason: Constipation Cyclobenzaprine HCl (Flexeril) 5 mg PO TID PRN PRN Reason: Other Last Admin: 11/28/16 22:19 Dose: 5 mg Diclofenac Sodium (Voltaren 1% Gel) 0 gm TOP QID [facility] Last Admin: 11/29/16 20:15 Dose: 16 gm Hydralazine HCl (Apresoline) 10 mg IVPUSH Q4H PRN PRN Reason: Hypertension Last Admin: 11/29/16 05:34 Dose: 10 mg Hydromorphone HCl (Dilaudid) 0.25 mg IVPUSH Q4H PRN PRN Reason: Pain (severe 7-10) Last Admin: 11/29/16 13:52 Dose: 0.25 mg Promethazine HCl 12.5 mg/ (Sodium Chloride) 50.5 mls @ 100 mls/hr IV Q6H PRN PRN Reason: Nausea/Vomiting Lorazepam (Ativan) 0.25 mg IV Q6H PRN PRN Reason: Anxiety Magnesium Sulfate (Pharmacy To Dose - Magnesium Replacement) 0 dose .XX ASDIRECTED PRN PRN Reason: RX TO MONITOR MAG LEVELS Metoprolol Tartrate (Lopressor) 5 mg IVPUSH Q4H PRN PRN Reason: Tachycardia Ondansetron HCl (Zofran) 4 mg IV Q6H PRN PRN Reason: Nausea/Vomiting Oxycodone HCl (Oxycontin) 10 mg PO Q12HR [facility] Last Admin: 11/29/16 20:11 Dose: 10 mg Oxycodone/Acetaminophen (Percocet 325-5 Mg) 1 tab PO Q4H PRN PRN Reason: Pain Last Admin: 11/30/16 07:16 Dose: 1 tab Eliquis (Apixaban 2. (5 Mg)) 0 each PO BID [facility] Last Admin: 11/29/16 20:13 Dose: 1 each Colchicine [Colcrys] (0.6 Mg) 0 each PO DAILY [facility] Last Admin: 11/29/16 08:14 Dose: 0.5 each Diltiazem Er 180 Mg (Tablet) 0 each PO DAILY [facility] Last Admin: 11/29/16 08:16 Dose: 1 each Lorazepam 1 Mg 0 each PO Q6H PRN PRN Reason: jitters Losartan [Cozaar] 25 (Mg) 0 each PO DAILY [facility] Last Admin: 11/29/16 08:22 Dose: 1 each Metoprolol Tartrate (50 Mg) 0 each PO BID [facility] Last Admin: 11/29/16 20:13 Dose: 1 each Women's One A Day (Multivitamin Tab) 0 each PO DAILY [facility] Last Admin: 11/29/16 08:21 Dose: 1 each Omeprazole 20 Mg 0 each PO PCDINNER [facility] Last Admin: 11/29/16 18:31 Dose: 1 each Potassium Chloride (20 Meq) 0 each PO BIDMEALS [facility] Last Admin: 11/30/16 06:24 Dose: 1 each Sennosides [Natural Vegetable Laxative] 8.6 Mg 0 each PO BEDTIME PRN PRN Reason: Constipation Torsemide 20 Mg 0 each PO DAILY [facility] Last Admin: 11/29/16 08:19 Dose: 1 each Polyethylene Glycol (Miralax) 17 gm PO DAILY PRN PRN Reason: Constipation Potassium Chloride (Pharmacy To Dose - Potassium Replacement) 0 dose .XX ASDIRECTED PRN PRN Reason: RX TO MONITOR K LEVELS Senna/Docusate Sodium (Senna Plus) 1 tab PO BID PRN PRN Reason: Constipation Sodium Chloride (Saline Flush) 10 ml FLUSH ASDIRECTED PRN PRN Reason: Keep Vein Open Last Admin: 11/27/16 23:04 Dose: 10 ml Temazepam (Restoril) 7.5 mg PO BEDTIME PRN PRN Reason: Sleep Discontinued Medications Acetaminophen (Tylenol) 975 mg PO Q4H PRN PRN Reason: Pain/Fever Hydrocodone Bitart/Acetaminophen ([place] 325-5 Mg) 1 tab PO Q4H PRN PRN Reason: Pain (moderate 4-6) Last Admin: 11/29/16 18:31 Dose: 1 tab Hydromorphone HCl (Dilaudid) 0.5 mg IVPUSH ONETIME ONE Stop: 11/27/16 22:55 Last Admin: 11/27/16 23:03 Dose: 0.5 mg Hydromorphone HCl (Dilaudid) 0.5 mg IVPUSH ONETIME ONE Stop: 11/28/16 00:52 Last Admin: 11/28/16 00:56 Dose: 0.5 mg Hydromorphone HCl (Dilaudid) 0.5 mg IVPUSH Q2H PRN PRN Reason: Pain Last Admin: 11/28/16 20:19 Dose: 0.5 mg Lidocaine (Lidoderm 5%) 700 mg TOP Q24H [facility] Last Admin: 11/28/16 14:23 Dose: 700 mg Magnesium Oxide (Magnesium Oxide) 400 mg PO TID [facility] Stop: 11/29/16 21:01 Last Admin: 11/29/16 20:11 Dose: 400 mg Miscellaneous Information (Remove Patch) 0 ea TRDERM Q24H [facility] Non-Formulary Medication (Bisacodyl [Dulcolax]) 5 mg PO DAILY PRN PRN Reason: Constipation Potassium Chloride (20 Meq Tabs) 0 each PO BID@1200,1700 [facility] Stop: 11/29/16 17:01 Last Admin: 11/29/16 16:19 Dose: 1 each - Exam General: alert, oriented, cooperative, no acute distress, mild distress HEENT: Pupils equal, Pupils reactive, EOMI, Mucous membr. moist/pink Neck: supple, trachea midline, no JVD, no thyromegaly Lungs: Clear to auscultation, Normal respiratory effort Cardiovascular: Regular Rate, Regular Rhythm Abdomen: bowel sounds present, soft, no tenderness, no distension (Female) Exam: Deferred Back Exam: Normal Inspection, Decreased Range of Motion Extremities: normal pulses, no tenderness/swelling, no cyanosis, no calf tenderness, edema (left ankle) Peripheral Pulses: 2+: Dorsalis Pedis (L), Dorsalis Pedis (R) Skin: warm, dry, intact, ecchymosis (left ankle) Neurological: no new focal deficit Psy/Mental Status: alert, normal affect, normal mood, other (She is more alert and awake) - Problem List Review Problem List Initiated/Reviewed/Updated: Yes - My Orders Last 24 Hours: My Active Orders 11/29/16 10:30 Magnesium Rep Pharmacy to Dose [Pharmacy to Dose - Magnesium Replacement] 0 dose .XX ASDIRECTED PRN Potassium Rep Pharmacy to Dose [Pharmacy to Dose - Potassium Replacement] 0 dose .XX ASDIRECTED PRN 11/29/16 11:48 Ice Therapy [OM.PC] Routine 11/29/16 13:00 Diclofenac Sodium [Voltaren 1% Gel] 0 gm TOP QID 11/29/16 18:50 Acetaminophen/oxyCODONE [Percocet 325-5 MG] 1 tab PO Q4H PRN 11/29/16 21:00 oxyCODONE ER [OxyCONTIN] 10 mg PO Q12HR - Plan Plan:: Assessment/Plan: Acute: Chronic Pain/Intractable Pain, Improved but not much - S/p Fall - Risk Factors: Advanced DJD/OA - Pain Medication Left Knee DJD/OA - XR shows negative for acute fracture - Continue voltaren gel topical Chronic Hip DJD/OA, Stable - Pelvis XR shows no acute fracture - Femur XR: Right Hip and Knee prostheses. No acute appreciated Left Ankle Sprain w/ mild edema and bruising - S/p Fall - XR 4 views: calcaneal spurs. No acute bony abnormality identified - Conservative management: leg elevation and cold compress to apply TID - Improving Gait Instability - Has weak left knee - Scheduled to see Dr. 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
[2016-11-30] MEDS: COLCHICINE 0.6 MG PO SCH (08:02)
[2016-11-30] MEDS: DILTIAZEM 180 MG PO SCH (08:02)
[2016-11-30] MEDS: ELIQUIS PO SCH ×2 (08:03→20:24)
[2016-11-30] MEDS: LOSARTAN 25 MG PO SCH (08:03)
[2016-11-30] MEDS: [UNRECOGNIZED DRUG - OTHER] PO SCH (08:05)
[2016-11-30] MEDS: MULTIVITAMIN PO SCH (08:05)
[2016-11-30] MEDS: Diclofenac Sodium 1% Gel 100 GM Tube TOP SCH ×4 (08:09→20:25)
[2016-11-30] MEDS: oxyCODONE ER 10 MG TAB.ER PO SCH ×2 (10:09→20:23)
[2016-11-30] MEDS: Temazepam 7.5 MG Cap PO PRN (20:26)
[2016-12-01] MEDS: Acetaminophen/oxyCODONE 325-5 MG Tab PO PRN ×2 (06:33→14:26)
[2016-12-01] MEDS: oxyCODONE ER 10 MG TAB.ER PO SCH ×2 (08:00→20:41)
[2016-12-01] MEDS: COLCHICINE 0.6 MG PO SCH (08:02)
[2016-12-01] MEDS: DILTIAZEM 180 MG PO SCH (08:02)
[2016-12-01] MEDS: LOSARTAN 25 MG PO SCH (08:03)
[2016-12-01] MEDS: ELIQUIS PO SCH ×2 (08:03→20:42)
[2016-12-01] MEDS: MULTIVITAMIN PO SCH (08:05)
[2016-12-01] MEDS: [UNRECOGNIZED DRUG - OTHER] PO SCH (08:05)
[2016-12-01] MEDS: Diclofenac Sodium 1% Gel 100 GM Tube TOP SCH ×4 (08:08→20:43)
[2016-12-01] MEDS: Cyclobenzaprine 10 MG Tab PO PRN ×2 (08:09→16:10)
--- NOTE | 2016-12-01 10:59 | PCM.PN ---
- General Info Date of Service: 12/01/16 Admission Dx/Problem (Free Text): Admission Diagnosis/Problem Admission Diagnosis/Problem Fall Subjective Update: Follow Up Functional Status: Reports: tolerating diet, urinating. Denies: pain controlled , new symptoms Pain Score: 7 - Review of Systems General: Reports: Weakness. Denies: Fever, Fatigue, Malaise, Chills HEENT: Reports: no symptoms Pulmonary: Denies: shortness of breath Cardiovascular: Reports: Edema. Denies: Chest Pain, Dyspnea on Exertion Gastrointestinal: Denies: Abdominal pain, Nausea, Vomiting Genitourinary: Reports: no symptoms Musculoskeletal: Reports: joint pain, joint swelling (left ankle) Skin: Reports: bruising Neurological: Reports: Difficulty Walking, Weakness, Gait Disturbance. Denies: Confusion Psychiatric: Denies: depression, anxiety, agitation, hallucinations Systems Review Comment:: No overnight or acute issues. Her pain is controlled. She is still unable to put weight on her left ankle, requiring some assistance. No PT/OT session today. - Patient Data Vitals - most recent: Last Vital Signs Temp 36.6 C 12/01/16 03:55 Pulse 65 12/01/16 03:55 Resp 12 12/01/16 03:55 BP 130/86 12/01/16 03:55 Pulse Ox 92 L 12/01/16 03:55 Weight - most recent: 87.407 kg I&O - last 24 hours: Intake & Output 11/30/16 12/01/16 12/01/16 22:59 06:59 14:59 Intake Total 800 650 Output Total 1200 400 Balance -400 250 Lab Results last 24 hrs: Laboratory Results - last 24 hr 12/01/16 Range/Units 05:40 Sodium 142 (136-145) mEq/L Potassium 4.1 (3.5-5.1) mEq/L Chloride 107 (98-107) mEq/L Carbon Dioxide 25 (21-32) mEq/L Anion Gap 14.1 (5-15) BUN 41 H (7-18) mg/dL Creatinine 2.3 H (0.55-1.02) mg/dL Est Cr Clr Drug Dosing 14.52 mL/min Estimated GFR (MDRD) 20 (>60) mL/min BUN/Creatinine Ratio 17.8 (14-18) Glucose 121 H (83-115) mg/dL Calcium 8.9 (8.5-10.1) mg/dL Magnesium 2.0 (1.8-2.4) mg/dl Med Orders - Current: Current Medications Acetaminophen (Tylenol) 650 mg PO Q4H PRN PRN Reason: Pain (Mild 1-3)/fever Albuterol (Proventil Neb Soln) 2.5 mg NEB Q2H PRN PRN Reason: Shortness Of Breath/wheezing Bisacodyl (Dulcolax) 5 mg PO DAILY PRN PRN Reason: Constipation Last Admin: 12/01/16 08:09 Dose: 5 mg Cyclobenzaprine HCl (Flexeril) 5 mg PO TID PRN PRN Reason: Other Last Admin: 12/01/16 08:09 Dose: 5 mg Diclofenac Sodium (Voltaren 1% Gel) 0 gm TOP QID JAMES Last Admin: 12/01/16 08:08 Dose: 8 gm Hydralazine HCl (Apresoline) 10 mg IVPUSH Q4H PRN PRN Reason: Hypertension Last Admin: 11/29/16 05:34 Dose: 10 mg Hydromorphone HCl (Dilaudid) 0.25 mg IVPUSH Q4H PRN PRN Reason: Pain (severe 7-10) Last Admin: 11/29/16 13:52 Dose: 0.25 mg Promethazine HCl 12.5 mg/ (Sodium Chloride) 50.5 mls @ 100 mls/hr IV Q6H PRN PRN Reason: Nausea/Vomiting Lorazepam (Ativan) 0.25 mg IV Q6H PRN PRN Reason: Anxiety Magnesium Sulfate (Pharmacy To Dose - Magnesium Replacement) 0 dose .XX ASDIRECTED PRN PRN Reason: RX TO MONITOR MAG LEVELS Metoprolol Tartrate (Lopressor) 5 mg IVPUSH Q4H PRN PRN Reason: Tachycardia Ondansetron HCl (Zofran) 4 mg IV Q6H PRN PRN Reason: Nausea/Vomiting Oxycodone HCl (Oxycontin) 10 mg PO Q12HR JAMES Last Admin: 12/01/16 08:00 Dose: 10 mg Oxycodone/Acetaminophen (Percocet 325-5 Mg) 1 tab PO Q4H PRN PRN Reason: Pain Last Admin: 12/01/16 06:33 Dose: 1 tab Eliquis (Apixaban 2. (5 Mg)) 0 each PO BID [facility] Last Admin: 12/01/16 08:03 Dose: 1 each Colchicine [Colcrys] (0.6 Mg) 0 each PO DAILY [facility] Last Admin: 12/01/16 08:02 Dose: 0.5 each Diltiazem Er 180 Mg (Tablet) 0 each PO DAILY [facility] Last Admin: 12/01/16 08:02 Dose: 1 each Lorazepam 1 Mg 0 each PO Q6H PRN PRN Reason: jitters Losartan [Cozaar] 25 (Mg) 0 each PO DAILY [facility] Last Admin: 12/01/16 08:03 Dose: 1 each Metoprolol Tartrate (50 Mg) 0 each PO BID [facility] Last Admin: 12/01/16 08:04 Dose: 0.5 each Women's One A Day (Multivitamin Tab) 0 each PO DAILY [facility] Last Admin: 12/01/16 08:05 Dose: 1 each Omeprazole 20 Mg 0 each PO PCDINNER [facility] Last Admin: 11/30/16 18:02 Dose: 1 each Potassium Chloride (20 Meq) 0 each PO BIDMEALS [facility] Last Admin: 12/01/16 06:34 Dose: 1 each Sennosides [Natural Vegetable Laxative] 8.6 Mg 0 each PO BEDTIME PRN PRN Reason: Constipation Torsemide 20mgOwn (Med) 1 each PO DAILY [facility] Stop: 12/01/16 12:01 Torsemide 20mgOwn (Med) 1 each PO DAILY [facility] Polyethylene Glycol (Miralax) 17 gm PO DAILY PRN PRN Reason: Constipation Potassium Chloride (Pharmacy To Dose - Potassium Replacement) 0 dose .XX ASDIRECTED PRN PRN Reason: RX TO MONITOR K LEVELS Senna/Docusate Sodium (Senna Plus) 1 tab PO BID PRN PRN Reason: Constipation Last Admin: 12/01/16 08:09 Dose: 1 tab Sodium Chloride (Saline Flush) 10 ml FLUSH ASDIRECTED PRN PRN Reason: Keep Vein Open Last Admin: 11/27/16 23:04 Dose: 10 ml Temazepam (Restoril) 7.5 mg PO BEDTIME PRN PRN Reason: Sleep Last Admin: 11/30/16 20:26 Dose: 7.5 mg Discontinued Medications Acetaminophen (Tylenol) 975 mg PO Q4H PRN PRN Reason: Pain/Fever Hydrocodone Bitart/Acetaminophen ([place] 325-5 Mg) 1 tab PO Q4H PRN PRN Reason: Pain (moderate 4-6) Last Admin: 11/29/16 18:31 Dose: 1 tab Hydromorphone HCl (Dilaudid) 0.5 mg IVPUSH ONETIME ONE Stop: 11/27/16 22:55 Last Admin: 11/27/16 23:03 Dose: 0.5 mg Hydromorphone HCl (Dilaudid) 0.5 mg IVPUSH ONETIME ONE Stop: 11/28/16 00:52 Last Admin: 11/28/16 00:56 Dose: 0.5 mg Hydromorphone HCl (Dilaudid) 0.5 mg IVPUSH Q2H PRN PRN Reason: Pain Last Admin: 11/28/16 20:19 Dose: 0.5 mg Lidocaine (Lidoderm 5%) 700 mg TOP Q24H [facility] Last Admin: 11/28/16 14:23 Dose: 700 mg Magnesium Oxide (Magnesium Oxide) 400 mg PO TID [facility] Stop: 11/29/16 21:01 Last Admin: 11/29/16 20:11 Dose: 400 mg Miscellaneous Information (Remove Patch) 0 ea TRDERM Q24H [facility] Non-Formulary Medication (Bisacodyl [Dulcolax]) 5 mg PO DAILY PRN PRN Reason: Constipation Torsemide 20 Mg 0 each PO DAILY [facility] Last Admin: 12/01/16 08:05 Dose: 1 each Potassium Chloride (20 Meq Tabs) 0 each PO BID@1200,1700 [facility] Stop: 11/29/16 17:01 Last Admin: 11/29/16 16:19 Dose: 1 each - Exam General: alert, oriented, cooperative, no acute distress HEENT: Pupils equal, Pupils reactive, EOMI, Mucous membr. moist/pink Neck: supple, trachea midline, no JVD Lungs: Clear to auscultation, Normal respiratory effort Cardiovascular: Regular Rate, Regular Rhythm Abdomen: bowel sounds present, soft, no tenderness, no distension (Female) Exam: Deferred Back Exam: Normal Inspection, Decreased Range of Motion Extremities: normal pulses, no tenderness/swelling, no clubbing, no calf tenderness, edema, other (bruise on left ankle) Peripheral Pulses: 2+: Dorsalis Pedis (L), Dorsalis Pedis (R) Skin: warm, dry Neurological: no new focal deficit. No: normal gait Psy/Mental Status: alert, normal affect, normal mood - Problem List Review Problem List Initiated/Reviewed/Updated: Yes - My Orders Last 24 Hours: My Active Orders 12/01/16 12:00 Patient's Own Medication [Ptom] 1 each PO DAILY 12/03/16 09:00 Patient's Own Medication [Ptom] 1 each PO DAILY - Plan Plan:: Assessment/Plan: Acute: Chronic Pain/Intractable Pain, Improved but not much - S/p Fall - Risk Factors: Advanced DJD/OA - Pain Medication Left Knee DJD/OA - XR shows negative for acute fracture - Continue voltaren gel topical Chronic Hip DJD/OA, Stable - Pelvis XR shows no acute fracture - Femur XR: Right Hip and Knee prostheses. No acute appreciated Left Ankle Sprain w/ mild edema and bruising - S/p Fall - XR 4 views: calcaneal spurs. No acute bony abnormality identified - Conservative management: leg elevation and cold compress to apply TID - Improving Gait Instability - Has weak left knee - Scheduled to see Dr. Rowley for further eval - She is one person assist and pivots with movement - Has not really been ambulating - Continue PT/OT Dehydration - Cr 2.3 from 1.8 - Poor fluid intake - She is on diuretic and drinks coffee - Hold diuretic in am - 250 ml NS X1 75 cc/hr Chronic: A-Fib on Eliquis, HR controlled HTN HLD Constipation DJD/OA CKD Stage 4 Pain Syndrome DM2 Gout H/o Opioid Withdrawal Hc/o Bilateral CTS-currently being followed by Dr. Rowley Plan: She remains clinically stable She is still unable to bear weight on her left leg due to ankle edema Routine AM labs She remains a High Fall Risk Continue PT/OT SW/CM for d/c planning Code status:1 Recommend re-evaluation by pain specialist after discharge LOS > 96 hrs due to slow response to treatment, patient would not do well on own at home
[2016-12-01] MEDS ORDERED: TORSEMIDE 20 MG PO SCH (12:00)
[2016-12-01] MEDS ORDERED: Sodium Chloride 0.9% 250 ML IV SCH (12:15)
[2016-12-01] MEDS ORDERED: Pantoprazole 40 MG Tab.CR PO SCH (16:00)
[2016-12-01] MEDS: HYDROmorphone 0.5 MG/0.5 ML Syringe IVPUSH PRN (16:05)
[2016-12-01] MEDS: Temazepam 7.5 MG Cap PO PRN (20:42)
[2016-12-02] MEDS: Acetaminophen/oxyCODONE 325-5 MG Tab PO PRN (07:31)
[2016-12-02] MEDS: DILTIAZEM 180 MG PO SCH (08:59)
[2016-12-02] MEDS ORDERED: Diltiazem 180 MG Cap.CD PO SCH (09:00)
[2016-12-02] MEDS ORDERED: Vitamin B Complex With Vitamin C Cap PO SCH (09:00)
[2016-12-02] MEDS: oxyCODONE ER 10 MG TAB.ER PO SCH (09:12)
[2016-12-02] MEDS: COLCHICINE 0.6 MG PO SCH (09:14)
[2016-12-02] MEDS: [UNRECOGNIZED DRUG - OTHER] PO SCH (09:15)
[2016-12-02] MEDS: MULTIVITAMIN PO SCH (09:15)
[2016-12-02] MEDS: ELIQUIS PO SCH (09:15)
[2016-12-02] MEDS: LOSARTAN 25 MG PO SCH (09:16)
[2016-12-02] MEDS: Diclofenac Sodium 1% Gel 100 GM Tube TOP SCH (09:16)
--- NOTE | 2016-12-02 09:28 | PCM.DCSUM1 ---
Discharge Summary - Hospital Course Free Text/Narrative:: This is an 86 year-old elderly white female with past medical history of chronic atrial fibrillation on eliquis, hypertension, hyperlipidemia, gout, chronic shortness of breath, constipation, history of hemorrhoids, Advanced DJD/ OA, Osteoporosis, Chronic Pain Syndrome and DM2, who presented to the emergency department with complaints of lower extremity pain after she fell from a standing position, chronic pain and weakness. Per family, the patient's right knee gave out and right after that she fell backward. The incident took place while she was at home. She denies any prodromal symptoms. No loss of consciousness. She further denies any complaints of neck or back pain. However she admits to having hips, knees and left ankle pain. Patient carries a history of advanced DJD and severe OA. She has had surgeries on her right hip and knee in the past. Currently she is being evaluated for bilateral carpal tunnel syndrome. She has been scheduled to see Dr. Rowley for further evaluation her right knee. Patient is familiar to me from previous admission about a year ago elated to cellulitis and possible gout (hyperuricemia). Her initial workup in the emergency department shows a CBC significant for WBC of 12.47, and neutrophils of 6.95. Her ESR is 9 and CRP is < 0.2. Her chemistry is unremarkable except for BUN of 24, creatinine of 1.7 and BS of 138. Her rheumatoid factor is negative. UA is unremarkable for urinary tract infection. All her imaging studies revealed no acute abnormal findings. Patient is being admitted under observation for medical management of intractable pain status post fall and ankle sprain. She is full code. PT/OT was consulted and worked with her for mobility. Pain medications were adjusted- tolerating pain very well with oxycontin 10mg BID, percocet PRN for breakthrough, voltaren gel and flexeril. Discharge planning team recommends SNF for rehab stay, patient and family refused this option and wish to be discharged home. They were in agreement to Home Health Care Services and continuing PT/OT through [facility]. Face to face encounter with patient and family on day of discharge reveals patient will benefit from continued PT/OT services through Home Health Care. She is home bound. She continues to be weak with gait imbalance and very high fall risk, PT/OT will benefit her with regards to her diagnosis of chronic pain , immobility, fall risk and generalized weakness. She will follow up with her PCP, Dr. Obrien within one week of discharge who will assume [facility] post discharge. - Discharge Data Discharge Date: 12/02/16 (observation admit berna 11/28/16) Discharge Disposition: Home, W Home Health Agency 06 Condition: Good - Patient Summary/Data Operative Procedure(s) Performed: None Complications: None Consults: Consultations 11/28/16 08:26 Consult to Case Management [CONS] Routine Consult to Parachute Manufacturing Supervisor [CONS] Routine Consult to Spiritual Care [CONS] Routine OT Evaluation and Treatment [CONS] Routine PT Evaluation and Treatment [CONS] Routine Labs Pending at D/C: None Recommended Follow-up Testing/Procedures: Physical & Occupation therapy to eval & treat--Home Health Care Follow up with PCP, Dr. Obrien within one week of discharge Recommend Turf Farmer Consultation Planned Operative Procedure(s) after DC: None Hospital Course: As above - Patient Instructions Diet: Heart Healthy Diet Activity: As Tolerated Driving: Do Not Drive Showering/Bathing: May Shower Notify Provider of: Fever, Increased Pain, Swelling and Redness, Nausea and/or Vomiting - Discharge Plan Prescriptions/Med Rec: oxyCODONE ER [OxyCONTIN] 10 mg PO Q12HR #20 tab.er Acetaminophen/oxyCODONE [Percocet 325-5 MG] 1 tab PO Q4H PRN #40 tablet PRN Reason: Pain Cyclobenzaprine [Flexeril] 5 mg PO TID PRN #20 tablet PRN Reason: muscle spasm/relaxant Diclofenac Sodium [Voltaren 1% Gel] 0 gm TOP QID #1 tube Docusate Sodium/Sennosides [Senna Plus] 1 tab PO BID PRN #60 tablet PRN Reason: Constipation Home Medications: Home Meds Bisacodyl [Dulcolax] 5 mg PO DAILY PRN 09/01/15 [History] Multivitamin [Multi-Vitamin Daily] 1 each PO DAILY 09/01/15 [History] Omeprazole 20 mg PO PCDINNER 09/01/15 [History] Potassium Chloride 20 meq PO 0700,1700 09/01/15 [History] Sennosides [Natural Vegetable Laxative] 8.6 mg PO BEDTIME PRN 09/01/15 [History] Apixaban [Eliquis] 2.5 mg PO BID 05/27/16 [History] Diltiazem [Cardizem CD] 180 mg PO DAILY 10/27/15 [History] Losartan [Cozaar] 25 mg PO DAILY 10/27/15 [History] LORazepam [Ativan] 1 mg PO Q6H PRN 12/15/15 [History] Torsemide [Demadex] 20 mg PO DAILY 12/15/15 [History] Colchicine [Colcrys] 0.3 mg PO DAILY #15 tablet 12/19/15 [Rx] Metoprolol Succinate [Toprol XL] 25 mg PO BID 03/19/16 [History] Acetaminophen/oxyCODONE [Percocet 325-5 MG] 1 tab PO Q4H PRN #40 tablet [Rx] Cyclobenzaprine [Flexeril] 5 mg PO TID PRN #20 tablet 12/02/16 [Rx] Diclofenac Sodium [Voltaren 1% Gel] 0 gm TOP QID #1 tube 12/02/16 [Rx] Docusate Sodium/Sennosides [Senna Plus] 1 tab PO BID PRN #60 tablet 12/02/16 [Rx ] oxyCODONE ER [OxyCONTIN] 10 mg PO Q12HR #20 tab.er 12/02/16 [Rx] Patient Handouts: Osteoarthritis, Ankle Sprain, [id number], Fall Prevention in the Home, Joint Pain, [id number] Forms: ED Department Discharge Referrals: Sunny Obrien MD [Primary Care Provider] - - Discharge Summary/Plan Comment DC Time >30 min.: Yes (40 min) - General Info Date of Service: 12/02/16 Admission Dx/Problem (Free Text: Admission Diagnosis/Problem Admission Diagnosis/Problem Fall Patient is seen with team rounding; she has been up and ambulatory with PT today , doing well. Patient and family have been against SNF placement despite recommendations and wish to try home health care. Plans for dc home today Functional Status: Reports: pain controlled, tolerating diet, ambulating, urinating. Denies: new symptoms - Review of Systems General: Reports: Weakness (generalized; improved) Pulmonary: Reports: no symptoms. Denies: shortness of breath, cough Cardiovascular: Reports: No Symptoms. Denies: Chest Pain Gastrointestinal: Reports: No symptoms. Denies: Abdominal pain, Constipation Genitourinary: Reports: no symptoms Musculoskeletal: Reports: back pain, leg pain, joint pain Neurological: Reports: No Symptoms Psychiatric: Reports: no symptoms - Patient Data Vitals - Most Recent: Last Vital Signs Temp 98.7 F 12/02/16 07:45 Pulse 68 12/02/16 07:45 Resp 16 12/02/16 07:45 BP 135/75 12/02/16 07:45 Pulse Ox 94 L 12/02/16 07:45 Weight - Most Recent: 196 lb 6.4 oz I&O - Last 24 hours: Intake & Output 12/01/16 12/02/16 12/02/16 22:59 06:59 14:59 Intake Total 1049 700 Output Total 1000 1000 Balance 49 -300 Lab Results - Last 24 hrs: Laboratory Results - last 24 hr 12/02/16 12/02/16 Range/Units 06:29 06:29 WBC 8.26 (3.98-10.04) K/mm3 RBC 4.11 (3.98-5.22) M/mm3 Hgb 14.1 (11.2-15.7) gm/L Hct 41.4 (34.1-44.9) % MCV 100.7 H (79.4-94.8) fl MCH 34.3 H (25.6-32.2) pg MCHC 34.1 (32.2-35.5) g/dl RDW Std Deviation 48.3 H (36.4-46.3) fL Plt Count 246 (182-369) K/mm3 MPV 9.6 (9.4-12.3) fl Neut % (Auto) 34.8 (34.0-71.1) % Lymph % (Auto) 45.5 (19.3-51.7) % [place] % (Auto) 11.4 (4.7-12.5) % Eos % (Auto) 7.1 H (0.7-5.8) Baso % (Auto) 1.1 (0.1-1.2) % Neut # (Auto) 2.87 (1.56-6.13) K/mm3 Lymph # (Auto) 3.76 H (1.18-3.74) K/mm3 [place] # (Auto) 0.94 H (0.24-0.36) K/mm3 Eos # (Auto) 0.59 H (0.04-0.36) K/mm3 Baso # (Auto) 0.09 H (0.01-0.08) K/mm3 Sodium 143 (136-145) mEq/L Potassium 4.1 (3.5-5.1) mEq/L Chloride 107 (98-107) mEq/L Carbon Dioxide 23 (21-32) mEq/L Anion Gap 17.1 H (5-15) BUN 39 H (7-18) mg/dL Creatinine 1.8 H (0.55-1.02) mg/dL Est Cr Clr Drug Dosing 18.56 mL/min Estimated GFR (MDRD) 27 (>60) mL/min BUN/Creatinine Ratio 21.7 H (14-18) Glucose 116 H (83-115) mg/dL Calcium 9.2 (8.5-10.1) mg/dL Med Orders - Current: Current Medications Acetaminophen (Tylenol) 650 mg PO Q4H PRN PRN Reason: Pain (Mild 1-3)/fever Albuterol (Proventil Neb Soln) 2.5 mg NEB Q2H PRN PRN Reason: Shortness Of Breath/wheezing Bisacodyl (Dulcolax) 5 mg PO DAILY PRN PRN Reason: Constipation Last Admin: 12/01/16 08:09 Dose: 5 mg Cyclobenzaprine HCl (Flexeril) 5 mg PO TID PRN PRN Reason: Other Last Admin: 12/01/16 16:10 Dose: 5 mg Diclofenac Sodium (Voltaren 1% Gel) 0 gm TOP QID JAMES Last Admin: 12/02/16 09:16 Dose: 4 gm Hydralazine HCl (Apresoline) 10 mg IVPUSH Q4H PRN PRN Reason: Hypertension Last Admin: 11/29/16 05:34 Dose: 10 mg Hydromorphone HCl (Dilaudid) 0.25 mg IVPUSH Q4H PRN PRN Reason: Pain (severe 7-10) Last Admin: 12/01/16 16:05 Dose: 0.25 mg Lorazepam (Ativan) 0.25 mg IV Q6H PRN PRN Reason: Anxiety Magnesium Sulfate (Pharmacy To Dose - Magnesium Replacement) 0 dose .XX ASDIRECTED PRN PRN Reason: RX TO MONITOR MAG LEVELS Metoprolol Tartrate (Lopressor) 5 mg IVPUSH Q4H PRN PRN Reason: Tachycardia Ondansetron HCl (Zofran) 4 mg IV Q6H PRN PRN Reason: Nausea/Vomiting Oxycodone HCl (Oxycontin) 10 mg PO Q12HR [facility] Last Admin: 12/02/16 09:12 Dose: 10 mg Oxycodone/Acetaminophen (Percocet 325-5 Mg) 1 tab PO Q4H PRN PRN Reason: Pain Last Admin: 12/02/16 07:31 Dose: 1 tab Eliquis (Apixaban 2. (5 Mg)) 0 each PO BID [facility] Last Admin: 12/02/16 09:15 Dose: 1 each Colchicine [Colcrys] (0.6 Mg) 0 each PO DAILY [facility] Last Admin: 12/02/16 09:14 Dose: 0.5 each Diltiazem Er 180 Mg (Tablet) 0 each PO DAILY [facility] Last Admin: 12/02/16 08:59 Dose: Not Given Lorazepam 1 Mg 0 each PO Q6H PRN PRN Reason: jitters Losartan [Cozaar] 25 (Mg) 0 each PO DAILY [facility] Last Admin: 12/02/16 09:16 Dose: 1 each Metoprolol Tartrate (50 Mg) 0 each PO BID [facility] Last Admin: 12/02/16 09:16 Dose: 0.5 each Women's One A Day (Multivitamin Tab) 0 each PO DAILY [facility] Last Admin: 12/02/16 09:15 Dose: 1 each Omeprazole 20 Mg 0 each PO PCDINNER [facility] Last Admin: 12/01/16 18:54 Dose: 1 each Potassium Chloride (20 Meq) 0 each PO BIDMEALS [facility] Last Admin: 12/02/16 07:31 Dose: 1 each Sennosides [Natural Vegetable Laxative] 8.6 Mg 0 each PO BEDTIME PRN PRN Reason: Constipation Torsemide 20mgOwn (Med) 1 each PO DAILY [facility] Polyethylene Glycol (Miralax) 17 gm PO DAILY PRN PRN Reason: Constipation Potassium Chloride (Pharmacy To Dose - Potassium Replacement) 0 dose .XX ASDIRECTED PRN PRN Reason: RX TO MONITOR K LEVELS Senna/Docusate Sodium (Senna Plus) 1 tab PO BID PRN PRN Reason: Constipation Last Admin: 12/01/16 20:46 Dose: 1 tab Sodium Chloride (Saline Flush) 10 ml FLUSH ASDIRECTED PRN PRN Reason: Keep Vein Open Last Admin: 11/27/16 23:04 Dose: 10 ml Temazepam (Restoril) 7.5 mg PO BEDTIME PRN PRN Reason: Sleep Last Admin: 12/01/16 20:42 Dose: 7.5 mg Vitamin B Complex/Vitamin C (Super B With Vitamin C) 1 cap PO DAILY [facility] Last Admin: 12/02/16 09:12 Dose: 1 cap Discontinued Medications Acetaminophen (Tylenol) 975 mg PO Q4H PRN PRN Reason: Pain/Fever Hydrocodone Bitart/Acetaminophen ([place] 325-5 Mg) 1 tab PO Q4H PRN PRN Reason: Pain (moderate 4-6) Last Admin: 11/29/16 18:31 Dose: 1 tab Diltiazem HCl (Cardizem Cd) 180 mg PO DAILY [facility] Stop: 12/02/16 09:01 Last Admin: 12/02/16 09:11 Dose: 180 mg Hydromorphone HCl (Dilaudid) 0.5 mg IVPUSH ONETIME ONE Stop: 11/27/16 22:55 Last Admin: 11/27/16 23:03 Dose: 0.5 mg Hydromorphone HCl (Dilaudid) 0.5 mg IVPUSH ONETIME ONE Stop: 11/28/16 00:52 Last Admin: 11/28/16 00:56 Dose: 0.5 mg Hydromorphone HCl (Dilaudid) 0.5 mg IVPUSH Q2H PRN PRN Reason: Pain Last Admin: 11/28/16 20:19 Dose: 0.5 mg Promethazine HCl 12.5 mg/ (Sodium Chloride) 50.5 mls @ 100 mls/hr IV Q6H PRN PRN Reason: Nausea/Vomiting Sodium Chloride (Normal Saline) 250 mls @ 70 mls/hr IV ASDIRECTED JAMES Last Admin: 12/01/16 12:36 Dose: 70 mls/hr Lidocaine (Lidoderm 5%) 700 mg TOP Q24H JAMES Last Admin: 11/28/16 14:23 Dose: 700 mg Magnesium Oxide (Magnesium Oxide) 400 mg PO TID JAMES Stop: 11/29/16 21:01 Last Admin: 11/29/16 20:11 Dose: 400 mg Miscellaneous Information (Remove Patch) 0 ea TRDERM Q24H [facility] Non-Formulary Medication (Bisacodyl [Dulcolax]) 5 mg PO DAILY PRN PRN Reason: Constipation Pantoprazole Sodium (Protonix) 40 mg PO BIDAC [facility] Torsemide 20 Mg 0 each PO DAILY [facility] Last Admin: 12/01/16 08:05 Dose: 1 each Potassium Chloride (20 Meq Tabs) 0 each PO BID@1200,1700 [facility] Stop: 11/29/16 17:01 Last Admin: 11/29/16 16:19 Dose: 1 each Torsemide 20mgOwn (Med) 1 each PO DAILY [facility] Stop: 12/01/16 12:01 Last Admin: 12/01/16 12:08 Dose: Not Given - Exam Quality Assessment: Reports: DVT prophylaxis General: Reports: alert, oriented, cooperative, no acute distress HEENT: Reports: Pupils equal, Pupils reactive, EOMI, Mucous membr. moist/pink Neck: Reports: supple Lungs: Reports: Clear to auscultation, Normal respiratory effort, Decreased breath sounds (bases bilat) Cardiovascular: Reports: Irregular Rhythm Abdomen: Reports: bowel sounds present, soft, no tenderness (Female) Exam: Deferred Rectal (Female) Exam: Deferred Neurological: Reports: no new focal deficit Psy/Mental Status: Reports: alert, normal affect, normal mood *Q Meaningful Use (DIS) - VTE *Q VTE Criteria *Q: - Stroke *Q Stroke Criteria *Q: - AMI *Q AMI Criteria *Q:
[2016-12-02 11:36] VITALS: BP 134/70
[2016-12-03] MEDS ORDERED: TORSEMIDE 20 MG PO SCH (09:00)
== END 2016-12-02 12:53 | disposition home health service (06) ==
LOC: JD.ED 22:08 → SUPCPDRO 22:08 → JD.MS 11-28 00:52
PROVIDERS: ADMIT Internal Medicine; ATTEND Internal Medicine
DX: G89.29 Other chronic pain (principal); S93.402A Sprain of unspecified ligament of left ankle, initial encounter; R26.9 Unspecified abnormalities of gait and mobility; I48.91 Unspecified atrial fibrillation; E78.5 Hyperlipidemia, unspecified; I12.9 Hypertensive chronic kidney disease with stage 1 through stage 4 chronic kidney disease, or unspecified chronic kidney disease; E11.22 Type 2 diabetes mellitus with diabetic chronic kidney disease; N18.4 Chronic kidney disease, stage 4 (severe); M10.9 Gout, unspecified; M77.32 Calcaneal spur, left foot; M16.0 Bilateral primary osteoarthritis of hip; M17.0 Bilateral primary osteoarthritis of knee; E78.00 Pure hypercholesterolemia, unspecified; K59.09 Other constipation; F41.9 Anxiety disorder, unspecified; W19.XXXA Unspecified fall, initial encounter; Z79.02 Long term (current) use of antithrombotics/antiplatelets; Z79.899 Other long term (current) drug therapy; Z86.718 Personal history of other venous thrombosis and embolism; Z86.711 Personal history of pulmonary embolism; Z87.440 Personal history of urinary (tract) infections; Z96.641 Presence of right artificial hip joint; Z90.49 Acquired absence of other specified parts of digestive tract; Z90.710 Acquired absence of both cervix and uterus; Z98.890 Other specified postprocedural states; Z82.61 Family history of arthritis
CPT/HCPCS: 36415; 72141; 72170; 73552; 73610; 80048; 80053; 81001; 83735; 85025; 85652; 86140; 86430; 94760; 96374; 96376; 97110; 97116; 97161; 97167; 97530; 97535; 99285; A9270; J0360; J1170; J7050; P9612; 96361; 96375; 99284; G0378

== ENCOUNTER 2017-05-11 19:50 | Emergency (ER) | payer MEDICARE, OTHER ==
[2017-05-11 20:25] VITALS: BP 183/69
--- NOTE | 2017-05-11 20:32 | EDM.PDOC ---
ED HPI GENERAL MEDICAL PROBLEM - General Chief Complaint: Lower Extremity Injury/Pain Stated Complaint: TOOK A FALL AND LANDED ON FACE Time Seen by Provider: 05/11/17 20:32 - History of Present Illness INITIAL COMMENTS - FREE TEXT/NARRATIVE: 87-year-old female fell after her right knee started to get out she landed on her right hip. But most of her pain involves her right upper facial structures where she landed. She believes she fell because of increased swelling around her knees. Left Knee Pain Score (Numeric/FACES): 8 - Related Data Allergies Allergy/AdvReac Type Severity Reaction Status Date / Time No Known Allergies Allergy Verified 05/11/17 20:22 Home Meds: Home Meds Multivitamin [Multi-Vitamin Daily] 1 each PO DAILY 09/01/15 [History] Omeprazole 20 mg PO PCDINNER 09/01/15 [History] Potassium Chloride 20 meq PO 0700,1700 09/01/15 [History] Sennosides [Natural Vegetable Laxative] 8.6 mg PO BEDTIME PRN 09/01/15 [History] Apixaban [Eliquis] 2.5 mg PO BID 10/27/15 [History] LORazepam [Ativan] 1 mg PO Q6H PRN 12/15/15 [History] Colchicine [Colcrys] 0.3 mg PO DAILY #15 tablet 12/19/15 [Rx] Metoprolol Succinate [Toprol XL] 25 mg PO BID 03/19/16 [History] Acetaminophen/oxyCODONE [Percocet 325-5 MG] 1 tab PO Q4H PRN #40 tablet [Rx] Diltiazem HCl [Cartia Xt] 240 mg PO DAILY 05/11/17 [History] Gabapentin [Neurontin] 400 mg PO BID 05/11/17 [History] Pravastatin [Pravachol] 20 mg PO DAILY 05/11/17 [History] hydrALAZINE [Apresoline] 25 mg PO Q8H 05/11/17 [History] Past Medical History HEENT History: Reports: Hard of Hearing, Impaired Vision Other HEENT History: has glasses "but I don't wear them very often". Glasses not brought to the hospital. 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: Musculoskeletal History: Reports: Back Pain, Chronic Other Musculoskeletal History: Chronic knee pain Neurological History: Reports: Vertigo Psychiatric History: Reports: Anxiety, Other (See Below) Other Psychiatric History: pt has been on chronic pain medicine due to pain in knee and lorazepam for anxiety Endocrine/Metabolic History: Reports: Diabetes, Type II Hematologic History: Reports: None Immunologic History: Reports: None - Infectious Disease History Infectious Disease History: Reports: Chicken Pox, Measles - Past Surgical History Head Surgeries/Procedures: Reports: None HEENT Surgical History: Reports: Cataract Surgery Cardiovascular Surgical History: Reports: None Respiratory Surgical History: Reports: None GI Surgical History: Reports: Appendectomy, Cholecystectomy, Colonoscopy Female Surgical History: Reports: Hysterectomy Neurological Surgical History: Reports: C-Spine Musculoskeletal Surgical History: Reports: Arthroscopic Knee, Hip Replacement, Knee Replacement, Shoulder Surgery Other Musculoskeletal Surgeries/Procedures:: Neck surgery Social & Family History - Family History HEENT: Reports: None Cardiac: Reports: None Musculoskeletal: Reports: Osteoarthritis Endocrine/Metabolic: Reports: Diabetes, Type I Oncologic: Reports: Bladder, Other (See Below) Other Oncologic Family History: 2 brothers and 1 sister had cancer, but unsure of type - Tobacco Use Smoking Status *Q: Never Smoker Second Hand Smoke Exposure: No - Caffeine Use Caffeine Use: Reports: Coffee - Recreational Drug Use Recreational Drug Use: No Drug Use in Last 12 Months: No - Living Situation & Occupation Living situation: Reports: Occupation: Retired Review of Systems - Review of Systems Review Of Systems: See Below Constitutional: Reports: No Symptoms Eyes: Reports: No Symptoms Ears: Reports: No Symptoms Mouth/Throat: Reports: No Symptoms Respiratory: Reports: No Symptoms Cardiovascular: Reports: No Symptoms GI/Abdominal: Reports: No Symptoms Genitourinary: Reports: No Symptoms Musculoskeletal: Reports: No Symptoms Skin: Reports: No Symptoms Neurological: Reports: No Symptoms ED EXAM, GENERAL - Physical Exam Exam: See Below Exam Limited By: No Limitations General Appearance: Alert, No Apparent Distress, Other ([place] Coma Score 15 she is cooperative) Ears: Normal External Exam, Normal Canal, Normal TMs Nose: Normal Inspection, Normal Mucosa, No Blood Throat/Mouth: Normal Inspection, Normal Lips, Normal Gums Head: Other (Patient is developing ecchymosis and swelling around her right eye where she struck the ground. No obvious deformity interocular muscle activity is normal) Neck: Normal Inspection, Supple, Non-Tender, Full Range of Motion. No: Lymphadenopathy (L), Lymphadenopathy (R) Respiratory/Chest: No Respiratory Distress, Lungs Clear, Normal Breath Sounds Cardiovascular: Regular Rate, Rhythm, No Edema, No Murmur GI/Abdominal: Normal Bowel Sounds, Soft, Non-Tender Rectal (Female) Exam: Normal Exam, Normal Rectal Tone Back Exam: Normal Inspection, Full Range of Motion. No: CVA Tenderness (L), CVA Tenderness (R) Extremities: Normal Inspection, Other (Trace edema noted bilateral lower extremities mild ecchymosis with right knee where she bumped it it is otherwise doing okay) Neurological: Other Course - Vital Signs Last Recorded V/S: Last Vital Signs Temp 36.2 C 05/11/17 20:22 Pulse 71 05/11/17 20:22 Resp 18 05/11/17 20:22 BP 183/69 H 05/11/17 20:22 Pulse Ox 89 L 05/11/17 20:22 - Orders/Labs/Meds Orders: Active Orders 24 hr Category Date Time Status Head wo Cont [CT] Stat Exams 05/11/17 20:50 Ordered Max Facial Sinus wo Cont [CT] Stat Exams 05/11/17 20:50 Ordered Labs: Laboratory Tests 05/11/17 05/11/17 Range/Units 21:03 21:03 WBC 10.11 H (3.98-10.04) K/mm3 RBC 3.88 L (3.98-5.22) M/mm3 Hgb 12.6 (11.2-15.7) gm/L Hct 38.9 (34.1-44.9) % MCV 100.3 H (79.4-94.8) fl MCH 32.5 H (25.6-32.2) pg MCHC 32.4 (32.2-35.5) g/dl RDW Std Deviation 52.6 H (36.4-46.3) fL Plt Count 239 (182-369) K/mm3 MPV 9.2 L (9.4-12.3) fl Sodium 144 (136-145) mEq/L Potassium 3.9 (3.5-5.1) mEq/L Chloride 110 H (98-107) mEq/L Carbon Dioxide 25 (21-32) mEq/L Anion Gap 12.9 (5-15) BUN 13 (7-18) mg/dL Creatinine 1.2 H (0.55-1.02) mg/dL Est Cr Clr Drug Dosing 27.32 mL/min Estimated GFR (MDRD) 42 (>60) mL/min BUN/Creatinine Ratio 10.8 L (14-18) Glucose 109 (83-115) mg/dL Calcium 9.7 (8.5-10.1) mg/dL - Re-Assessments/Exams Free Text/Narrative Re-Assessment/Exam: 05/11/17 21:52 Patient not having any new problems CTs are negative for acute fracture dislocation of the facial bones no intracranial. Lacunar medications discussed with the family and it is unclear to me why she was stopped off diuretics in the past so I will not reinstitute diuretic therapy at this point she needs to discuss this with her regular physician. Departure - Departure Time of Disposition: 21:53 Disposition: Home, Self-Care 01 Clinical Impression: Head injury, Contusion of face - Discharge Information Referrals: Sunny Obrien MD [Primary Care Provider] - Forms: ED Department Discharge Additional Instructions: Return to emergency room with any questions problems or worsening symptoms. Follow-up in the clinic in 2 or 3 days for recheck. Discuss any residual issues that may be going on following a head injury and discuss it would be possible to get back on water pills. Use your [place] every 4-6 hours as needed for pain. - My Orders Last 24 Hours: My Active Orders 05/11/17 20:50 Head wo Cont [CT] Stat Max Facial Sinus wo Cont [CT] Stat - Assessment/Plan Last 24 Hours: My Active Orders 05/11/17 20:50 Head wo Cont [CT] Stat Max Facial Sinus wo Cont [CT] Stat
--- NOTE | 2017-05-12 07:52 | CT ---
Head CT Technique: Multiple axial sections through the brain were obtained. Intravenous contrast was not utilized. Comparison: Prior head CT study of 07/15/14. Findings: Ventricles along with basal cisterns and sulci over the convexities are mildly prominent. Soft tissue swelling seen within the frontal scalp. Minimal low density seen within the periventricular white matter compatible with minimal small vessel ischemic demyelination change. No other abnormal parenchymal densities are seen. No evidence of intracranial hemorrhage. No midline shift or mass effect is seen. Bone window settings were reviewed which show no discrete calvarial abnormality. Visualized sinuses are clear. Impression: 1. Mild senescent change. 2. Soft tissue swelling within the frontal scalp. 3. No acute intracranial abnormality is identified on noncontrast head CT study. Diagnostic code #2 I agree with preliminary report issued by [facility] ([facility] preliminary report dictated on 05/11/17, 10:26 PM Central Time)
--- NOTE | 2017-05-12 07:52 | CT ---
CT facial bones Technique: Multiple axial sections through the facial bones were obtained. Reconstructed sagittal and coronal images were reviewed. Comparison: No prior facial bone study. Findings: Right and left globes are symmetric. Paranasal sinuses are clear. Previous cervical spine surgery is noted with degenerative change also seen within the cervical spine. No facial bone fracture is identified. Impression: 1. Degenerative change within the cervical spine with previous cervical spine surgery. 2. No acute facial bone fracture is appreciated. Diagnostic code #2 I agree with preliminary report issued by [facility] ([facility] preliminary report dictated on 05/11/17, 10:28 PM Central Time)
== END 2017-05-11 22:25 | disposition home or self-care (01) ==
LOC: JD.ED 19:50
DX: S80.01XA Contusion of right knee, initial encounter (principal); S00.83XA Contusion of other part of head, initial encounter; S09.90XA Unspecified injury of head, initial encounter; E78.00 Pure hypercholesterolemia, unspecified; I10 Essential (primary) hypertension; E11.9 Type 2 diabetes mellitus without complications; Z79.899 Other long term (current) drug therapy; W19.XXXA Unspecified fall, initial encounter
CPT/HCPCS: 36415; 70450; 70450-26; 70486; 70486-26; 80048; 85027; 99283; 99284-25

== ENCOUNTER 2018-08-07 18:03 | Emergency (ER) | payer MEDICARE, OTHER ==
[2018-08-07 18:55] VITALS: BP 156/60
--- NOTE | 2018-08-07 21:16 | EDM.PDOC ---
ED HPI GENERAL MEDICAL PROBLEM - General Chief Complaint: Gastrointestinal Problem Stated Complaint: RECTAL BLEEDING Time Seen by Provider: 08/07/18 19:03 Source of Information: Reports: Patient, Family History Limitations: Reports: No Limitations - History of Present Illness INITIAL COMMENTS - FREE TEXT/NARRATIVE: This is an 88-year-old female. She has a history of being on narcotics causing her stools to be hard and she's been on some stool softeners but apparently she stopped them recently and she has developed hard stools again. She has been straining when she goes to the bathroom and this morning as she was trying to have a bowel movement she was straining and she started having bright red blood. She has had bright red blood with her stool 5 or 6 times today when she tries to go to the bathroom. She says when she urinated she noted blood as well. She has a hysterectomy and she's had a cholecystectomy. She states her abdomen is not hurting her rectum is not hurting. She has had no fever no chills. She lives with her daughter who takes care of her. The daughter indicates that she does have a history of hemorrhoids and has had surgery on hemorrhoids in the past. - Related Data Allergies Allergy/AdvReac Type Severity Reaction Status Date / Time No Known Allergies Allergy Verified 08/07/18 18:41 Home Meds: Home Meds Multivitamin [Multi-Vitamin Daily] 1 each PO DAILY 09/01/15 [History] Omeprazole 20 mg PO BEDTIME 09/01/15 [History] Potassium Chloride 20 meq PO BID 09/01/15 [History] Sennosides [Natural Vegetable Laxative] 8.6 mg PO BEDTIME PRN 09/01/15 [History] Apixaban [Eliquis] 2.5 mg PO BID 10/27/15 [History] LORazepam [Ativan] 1 mg PO Q6H PRN 12/15/15 [History] Colchicine [Colcrys] 0.3 mg PO DAILY #15 tablet 12/19/15 [Rx] Diltiazem HCl [Cartia Xt] 240 mg PO DAILY 05/11/17 [History] Gabapentin [Neurontin] 400 mg PO BID 05/11/17 [History] Pravastatin [Pravachol] 20 mg PO DAILY 05/11/17 [History] hydrALAZINE [Apresoline] 25 mg PO TID 05/11/17 [History] Hydrocodone/Acetaminophen [[place] 5-325 Tablet] 5 - 325 mg PO TID 04/13/18 [ History] Torsemide [Demadex] 10 mg PO DAILY 04/13/18 [History] Docusate Sodium [Colace] 100 mg PO DAILY PRN 08/07/18 [History] Hydrocortisone Acetate [Anucort-HC] 25 mg .XX Q6H #20 supp 08/07/18 [Rx] Metoprolol Tartrate 25 mg PO BID 08/07/18 [History] Past Medical History HEENT History: Reports: Hard of Hearing, Impaired Vision Other HEENT History: has glasses "but I don't wear them very often". 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 Psychiatric History: Reports: Anxiety, Other (See Below) Other Psychiatric History: pt has been on chronic pain medicine due to pain in knee and lorazepam for anxiety Endocrine/Metabolic History: Reports: Diabetes, Type II Other Endocrine/Metabolic History: diet controlled, takes no meds. Hematologic History: Reports: None Immunologic History: Reports: None - Infectious Disease History Infectious Disease History: Reports: Chicken Pox, Measles - Past Surgical History Head Surgeries/Procedures: Reports: None HEENT Surgical History: Reports: Cataract Surgery Cardiovascular Surgical History: Reports: Pacer Respiratory Surgical History: Reports: None GI Surgical History: Reports: Appendectomy, Cholecystectomy, Colonoscopy Female Surgical History: Reports: Hysterectomy Neurological Surgical History: Reports: C-Spine Musculoskeletal Surgical History: Reports: Arthroscopic Knee, Hip Replacement, Knee Replacement, Shoulder Surgery Other Musculoskeletal Surgeries/Procedures:: Neck surgery Social & Family History - Family History HEENT: Reports: None Cardiac: Reports: None Musculoskeletal: Reports: Osteoarthritis Endocrine/Metabolic: Reports: Diabetes, Type I Oncologic: Reports: Bladder, Other (See Below) Other Oncologic Family History: 2 brothers and 1 sister had cancer, but unsure of type - Tobacco Use Smoking Status *Q: Never Smoker Second Hand Smoke Exposure: No - Caffeine Use Caffeine Use: Reports: Coffee - Recreational Drug Use Recreational Drug Use: No - Living Situation & Occupation Living situation: Reports: Occupation: Retired ED ROS GENERAL - Review of Systems Review Of Systems: See Below Constitutional: Denies: Fever, Chills HEENT: Reports: No Symptoms Respiratory: Reports: No Symptoms Cardiovascular: Reports: No Symptoms Endocrine: Reports: No Symptoms GI/Abdominal: Reports: Constipation. Denies: Abdominal Pain, Nausea, Vomiting : Reports: Other (History of blood in her urine today) Musculoskeletal: Reports: Other (Generalized weakness and aches and pains) Skin: Reports: No Symptoms Neurological: Reports: Dizziness Psychiatric: Reports: No Symptoms Hematologic/Lymphatic: Reports: No Symptoms ED EXAM, GI/ABD - Physical Exam Exam: See Below Exam Limited By: No Limitations General Appearance: Alert, WD/WN, No Apparent Distress Eyes: Bilateral: Normal Appearance Ears: Normal External Exam Nose: Normal Inspection Throat/Mouth: Normal Inspection, Normal Lips, Normal Voice, No Airway Compromise Head: Normocephalic Neck: Supple Respiratory/Chest: No Respiratory Distress, Lungs Clear, Normal Breath Sounds Cardiovascular: No Murmur, Irregularly Irregular, Other (She has a pacemaker in the left anterior chest) GI/Abdominal Exam: Soft, Non-Tender, No Distention. No: Guarding, Rigid, Rebound, Tender Rectal (Female) Exam: Normal Rectal Tone, Hemorrhoids, Other (She has multiple hemorrhoid tags, I do not see any bright red blood presently, I did push my finger inside the rectal vault slightly and there was some bright red blood noted) Back Exam: Decreased Range of Motion Extremities: Other (Her extremities were essentially within normal limits) Neurological: Alert, Oriented Psychiatric: Normal Affect, Normal Mood Skin Exam: Warm, Dry Course - Vital Signs Last Recorded V/S: Last Vital Signs Temp 97.4 F 08/07/18 18:15 Pulse 70 08/07/18 18:15 Resp 16 08/07/18 18:15 BP 156/60 H 08/07/18 18:15 Pulse Ox 92 L 08/07/18 18:15 - Orders/Labs/Meds Orders: Active Orders 24 hr Category Date Time Status KUB [Abdomen 1V Flat] [CR] Stat Exams 08/07/18 19:38 Taken CULTURE URINE [RM] Stat Lab 08/07/18 19:45 Received Labs: Laboratory Tests 08/07/18 08/07/18 08/07/18 Range/Units 18:35 18:35 19:45 WBC 10.23 H (3.98-10.04) K/mm3 RBC 4.09 (3.98-5.22) M/mm3 Hgb 13.5 (11.2-15.7) gm/L Hct 40.9 (34.1-44.9) % MCV 100.0 H (79.4-94.8) fl MCH 33.0 H (25.6-32.2) pg MCHC 33.0 (32.2-35.5) g/dl RDW Std Deviation 50.3 H (36.4-46.3) fL Plt Count 235 (182-369) K/mm3 MPV 9.6 (9.4-12.3) fl Neut % (Auto) 49.1 (34.0-71.1) % Lymph % (Auto) 35.4 (19.3-51.7) % [place] % (Auto) 11.0 (4.7-12.5) % Eos % (Auto) 3.4 (0.7-5.8) Baso % (Auto) 0.9 (0.1-1.2) % Neut # (Auto) 5.02 (1.56-6.13) K/mm3 Lymph # (Auto) 3.62 (1.18-3.74) K/mm3 [place] # (Auto) 1.13 H (0.24-0.36) K/mm3 Eos # (Auto) 0.35 (0.04-0.36) K/mm3 Baso # (Auto) 0.09 H (0.01-0.08) K/mm3 Sodium 144 (136-145) mEq/L Potassium 3.5 (3.5-5.1) mEq/L Chloride 107 (98-107) mEq/L Carbon Dioxide 24 (21-32) mEq/L Anion Gap 16.5 H (5-15) BUN 28 H (7-18) mg/dL Creatinine 1.7 H (0.55-1.02) mg/dL Est Cr Clr Drug Dosing 21.41 mL/min Estimated GFR (MDRD) 28 (>60) mL/min BUN/Creatinine Ratio 16.5 (14-18) Glucose 142 H (83-115) mg/dL Calcium 9.6 (8.5-10.1) mg/dL Total Bilirubin 0.5 (0.2-1.0) mg/dL AST 23 (15-37) U/L ALT 23 (14-59) U/L Alkaline Phosphatase 71 (46-116) U/L Total Protein 7.5 (6.4-8.2) g/dl Albumin 3.8 (3.4-5.0) g/dl Globulin 3.7 gm/dL Albumin/Globulin Ratio 1.0 (1-2) Urine Color Yellow (Yellow) Urine Appearance Clear (Clear) Urine pH 5.5 (5.0-8.0) Ur Specific [place] 1.010 (1.005-1.030) Urine Protein Negative (Negative) Urine Glucose (UA) Negative (Negative) Urine Ketones Negative (Negative) Urine Occult Blood Negative (Negative) Urine Nitrite Negative (Negative) Urine Bilirubin Negative (Negative) Urine Urobilinogen 0.2 (0.2-1.0) Ur Leukocyte Esterase 1+ H (Negative) Urine RBC 0-5 (0-5) /hpf Urine WBC 30-40 H (0-5) /hpf Ur Epithelial Cells 0-5 (0-5) /hpf Urine Bacteria Moderate H (FEW) /hpf Urine Mucus Few (FEW) /hpf - Re-Assessments/Exams Free Text/Narrative Re-Assessment/Exam: 08/08/18 20:47 I spoke to the daughter regarding the normal blood count. The mild renal insufficiency and the bacteria in her urine but no blood. We will culture the urine but not treated at this point unless something grows out that needs to be treated and the daughter understands. I spoke at length regarding internal hemorrhoids and how they bleed with her being on Eliquis this is going to be very difficult for her and there are not to stop the Eliquis until they speak to her doctor. In the meantime I'll prescribe some Anusol HC suppositories every 6 hours and I counseled the daughter on how to put talks and menstrual pads in the rectal crease to act as a tampnade if the bleeding gets bad. They' re to follow-up with her doctor this week for recheck to see what to do about the hemorrhoids. Also if there is marked increased bleeding they're to return to the ER. The daughter understands. Departure - Departure Time of Disposition: 21:12 Disposition: Home, Self-Care 01 Condition: Fair Clinical Impression: Hemorrhoids, internal, with bleeding - Discharge Information *PRESCRIPTION DRUG MONITORING PROGRAM REVIEWED*: Not Applicable *COPY OF PRESCRIPTION DRUG MONITORING REPORT IN PATIENT ESTELLA: Not Applicable Prescriptions: Hydrocortisone Acetate [Anucort-HC] 25 mg .XX Q6H #20 supp Referrals: Sunny Obrien MD [Primary Care Provider] - Forms: ED Department Discharge Additional Instructions: Get the Anusol HC suppositories use them every 6 hours to help dry up the hemorrhoids, use Tucks or menstrual pads to keep the bleeding under control and stuff them next to the anal orifice after she goes to the bathroom to help control the bleeding, if things markedly worsened you need to bring her back to the ER, she needs to follow-up with her family doctor this Friday for recheck and reevaluation, remember with the Ellquis she is going to bleed, if you're concerned bring her back to the ER - My Orders Last 24 Hours: My Active Orders 08/07/18 19:38 KUB [Abdomen 1V Flat] [CR] Stat 08/07/18 19:45 CULTURE URINE [RM] Stat - Assessment/Plan Last 24 Hours: My Active Orders 08/07/18 19:38 KUB [Abdomen 1V Flat] [CR] Stat 08/07/18 19:45 CULTURE URINE [RM] Stat
--- NOTE | 2018-08-10 08:14 | CR ---
Abdomen: Supine view of the abdomen was obtained. Comparison: No prior abdominal x-ray. Right hip prosthesis is seen. Degenerative change is scattered within the spine. Vascular calcification is noted. Multiple calcifications are noted within the pelvis compatible with phleboliths. Calcifications noted within the right lower abdomen believed to be incidental. Surgical clips are seen from prior cholecystectomy. Bowel gas pattern is normal. Impression: 1. Incidental findings. Nothing acute is identified. Diagnostic code #2
== END 2018-08-07 21:37 | disposition home or self-care (01) ==
LOC: JD.ED 18:03
DX: K64.8 Other hemorrhoids (principal); I10 Essential (primary) hypertension; E78.00 Pure hypercholesterolemia, unspecified; F41.9 Anxiety disorder, unspecified; E11.9 Type 2 diabetes mellitus without complications; Z79.899 Other long term (current) drug therapy
CPT/HCPCS: 36415; 74018; 74018-26; 80053; 81001; 85025; 87086; 99283; 99283-25

== ENCOUNTER 2018-08-10 13:25 | Emergency (ER) | payer MEDICARE, OTHER ==
[2018-08-10 13:49] VITALS: BP 142/69
--- NOTE | 2018-08-10 15:01 | CR ---
Left shoulder: 3 views of the left shoulder were obtained. Comparison: No previous shoulder exam. Degenerative change is noted within the glenohumeral joint. Previous resection of the distal left clavicle is noted. Previous upper thoracic spine surgery is noted. Pacemaker is present. Bony structures are osteopenic. No acute fracture or dislocation is seen. Impression: 1. Degenerative change. Other incidental findings. 2. Nothing acute is appreciated on left shoulder study. Diagnostic code #2
--- NOTE | 2018-08-10 15:01 | CR ---
Left wrist: 4 views of the left wrist were obtained. Comparison: No previous wrist exam. Joint space narrowing is noted off the distal navicular bone. Joint space narrowing and osteophytes are seen within the CMC joint of the thumb. Bony structures are osteopenic. No acute fracture, dislocation or other bony abnormality is seen. Impression: 1. Degenerative change and osteopenia. 2. No acute abnormality is appreciated on left wrist exam. Diagnostic code #2
--- NOTE | 2018-08-10 15:28 | EDM.PDOC ---
ED HPI GENERAL MEDICAL PROBLEM - General Chief Complaint: Upper Extremity Injury/Pain Stated Complaint: ARM INJURY Time Seen by Provider: 08/10/18 13:40 Source of Information: Reports: Patient, Family (Daughter), RN Notes Reviewed - History of Present Illness INITIAL COMMENTS - FREE TEXT/NARRATIVE: 80-year-old female comes in with left shoulder, left wrist pain status post fall against a doorway early this past morning either going to or from the bathroom. There was no LOC. She did not fall to the floor. There was no appreciable injury to her head or neck. She does use a walker to move about her home. As a daughter that lives with her. She does not remember if she stumbled or if she got dizzy, lightheaded or really what happened. Since that time she' s not been having chest or abdominal pain or difficulty breathing. She no longer feels lightheaded or dizzy. Left Shoulder Pain Score (Numeric/FACES): 10 Left Wrist Pain Score (Numeric/FACES): 10 - Related Data Allergies Allergy/AdvReac Type Severity Reaction Status Date / Time No Known Allergies Allergy Verified 08/10/18 13:49 Home Meds: Home Meds Multivitamin [Multi-Vitamin Daily] 1 each PO DAILY 09/01/15 [History] Omeprazole 20 mg PO BEDTIME 09/01/15 [History] Potassium Chloride 20 meq PO BID 09/01/15 [History] Sennosides [Natural Vegetable Laxative] 8.6 mg PO BEDTIME PRN 09/01/15 [History] Apixaban [Eliquis] 2.5 mg PO BID 10/27/15 [History] LORazepam [Ativan] 1 mg PO Q6H PRN 12/15/15 [History] Colchicine [Colcrys] 0.3 mg PO DAILY #15 tablet 12/19/15 [Rx] Diltiazem HCl [Cartia Xt] 240 mg PO DAILY 05/11/17 [History] Gabapentin [Neurontin] 400 mg PO BID 05/11/17 [History] Pravastatin [Pravachol] 20 mg PO DAILY 05/11/17 [History] hydrALAZINE [Apresoline] 25 mg PO TID 05/11/17 [History] Hydrocodone/Acetaminophen [[place] 5-325 Tablet] 5 - 325 mg PO TID 04/13/18 [ History] Torsemide [Demadex] 10 mg PO DAILY 04/13/18 [History] Docusate Sodium [Colace] 100 mg PO DAILY PRN 08/07/18 [History] Hydrocortisone Acetate [Anucort-HC] 25 mg .XX Q6H #20 supp 08/07/18 [Rx] Metoprolol Tartrate 25 mg PO BID 08/07/18 [History] Cephalexin [Keflex] 500 mg PO TID #20 capsule 08/10/18 [Rx] tiZANidine [Zanaflex] 2 mg PO TID 08/10/18 [History] Past Medical History HEENT History: Reports: Hard of Hearing, Impaired Vision Other HEENT History: has glasses "but I don't wear them very often". Cardiovascular History: Reports: Afib, Blood Clots/VTE/DVT, High Cholesterol, Hypertension, Pacemaker Respiratory History: Reports: PE, SOB Gastrointestinal History: Reports: Chronic Constipation, Diverticulosis, Hemorrhoids Other Gastrointestinal History: hemorrhoidectomy Genitourinary History: Reports: Renal Calculus, UTI, Recurrent [employer] History: Reports: Musculoskeletal History: Reports: Back Pain, Chronic Other Musculoskeletal History: Chronic knee pain Neurological History: Reports: TIA, Vertigo Other Neuro History: ??TIA, had ear issues--ENT doctor thought maybe mini- stroke. Psychiatric History: Reports: Anxiety, Other (See Below) Other Psychiatric History: pt has been on chronic pain medicine due to pain in knee and lorazepam for anxiety Endocrine/Metabolic History: Reports: Diabetes, Type II Other Endocrine/Metabolic History: diet controlled, takes no meds. Hematologic History: Reports: None Immunologic History: Reports: None - Infectious Disease History Infectious Disease History: Reports: Chicken Pox, Measles - Past Surgical History Head Surgeries/Procedures: Reports: None HEENT Surgical History: Reports: Cataract Surgery Cardiovascular Surgical History: Reports: Pacer Respiratory Surgical History: Reports: None GI Surgical History: Reports: Appendectomy, Cholecystectomy, Colonoscopy Female Surgical History: Reports: Hysterectomy Neurological Surgical History: Reports: C-Spine Musculoskeletal Surgical History: Reports: Arthroscopic Knee, Hip Replacement, Knee Replacement, Shoulder Surgery Other Musculoskeletal Surgeries/Procedures:: Neck surgery Social & Family History - Family History HEENT: Reports: None Cardiac: Reports: None Musculoskeletal: Reports: Osteoarthritis Endocrine/Metabolic: Reports: Diabetes, Type I Oncologic: Reports: Bladder, Other (See Below) Other Oncologic Family History: 2 brothers and 1 sister had cancer, but unsure of type - Tobacco Use Smoking Status *Q: Never Smoker - Caffeine Use Caffeine Use: Reports: Coffee - Living Situation & Occupation Living situation: Reports: Occupation: Retired Review of Systems - Review of Systems Review Of Systems: See Below Constitutional: Denies: Chills, Diaphoresis, Fever Eyes: Reports: No Symptoms Ears: Reports: No Symptoms Nose: Reports: No Symptoms Mouth/Throat: Reports: No Symptoms Respiratory: Denies: Shortness of Breath Cardiovascular: Denies: Chest Pain GI/Abdominal: Denies: Abdominal Pain, Nausea, Vomiting Musculoskeletal: Reports: Shoulder Pain, Joint Pain (Left wrist). Denies: Neck Pain Skin: Reports: No Symptoms Neurological: Reports: Dizziness (Gone). Denies: Trouble Speaking, Weakness ED EXAM, GENERAL - Physical Exam Exam: See Below General Appearance: Alert, No Apparent Distress Eye Exam: Bilateral Eye: PERRL Throat/Mouth: Normal Inspection, Normal Oropharynx Head: Atraumatic. No: Facial Swelling Neck: Supple, Non-Tender Respiratory/Chest: No Respiratory Distress, Lungs Clear, Normal Breath Sounds, Chest Non-Tender Cardiovascular: Regular Rate, Rhythm GI/Abdominal: Soft, Non-Tender Back Exam: No: Paraspinal Tenderness, Vertebral Tenderness Extremities: Joint Swelling (There may be very slight swelling of her left wrist , moderate tenderness radial aspect, moderate tenderness left superior and lateral shoulder, no visible swelling bruising or deformity.) Neurological: Alert, Oriented, No Motor/Sensory Deficits Skin Exam: Warm, Dry, Normal Color Course - Vital Signs Last Recorded V/S: Last Vital Signs Temp 98.5 F 08/10/18 13:46 Pulse 61 08/10/18 13:46 Resp 18 08/10/18 13:46 BP 142/69 H 08/10/18 13:46 Pulse Ox 92 L 08/10/18 13:46 - Orders/Labs/Meds Labs: Laboratory Tests 08/10/18 08/10/18 Range/Units 14:28 14:28 WBC 8.95 (3.98-10.04) K/mm3 RBC 3.58 L (3.98-5.22) M/mm3 Hgb 11.8 (11.2-15.7) gm/L Hct 36.6 (34.1-44.9) % MCV 102.2 H (79.4-94.8) fl MCH 33.0 H (25.6-32.2) pg MCHC 32.2 (32.2-35.5) g/dl RDW Std Deviation 50.3 H (36.4-46.3) fL Plt Count 222 (182-369) K/mm3 MPV 9.1 L (9.4-12.3) fl Neut % (Auto) 54.0 (34.0-71.1) % Lymph % (Auto) 33.6 (19.3-51.7) % [place] % (Auto) 8.7 (4.7-12.5) % Eos % (Auto) 2.8 (0.7-5.8) Baso % (Auto) 0.7 (0.1-1.2) % Neut # (Auto) 4.83 (1.56-6.13) K/mm3 Lymph # (Auto) 3.01 (1.18-3.74) K/mm3 [place] # (Auto) 0.78 H (0.24-0.36) K/mm3 Eos # (Auto) 0.25 (0.04-0.36) K/mm3 Baso # (Auto) 0.06 (0.01-0.08) K/mm3 Sodium 145 (136-145) mEq/L Potassium 4.2 (3.5-5.1) mEq/L Chloride 107 (98-107) mEq/L Carbon Dioxide 25 (21-32) mEq/L Anion Gap 17.2 H (5-15) BUN 31 H (7-18) mg/dL Creatinine 1.9 H (0.55-1.02) mg/dL Est Cr Clr Drug Dosing TNP Estimated GFR (MDRD) 25 (>60) mL/min BUN/Creatinine Ratio 16.3 (14-18) Glucose 112 (83-115) mg/dL Calcium 9.9 (8.5-10.1) mg/dL Total Bilirubin 0.5 (0.2-1.0) mg/dL AST 16 (15-37) U/L ALT 19 (14-59) U/L Alkaline Phosphatase 63 (46-116) U/L Total Protein 7.1 (6.4-8.2) g/dl Albumin 3.6 (3.4-5.0) g/dl Globulin 3.5 gm/dL Albumin/Globulin Ratio 1.0 (1-2) - Re-Assessments/Exams Free Text/Narrative Re-Assessment/Exam: 08/10/18 21:31 X-rays of wrist and shoulder are negative for fracture, labs did come back relatively normal, vitals have been stable. Discharge instructions as documented. Departure - Departure Time of Disposition: 15:25 Disposition: Home, Self-Care 01 Condition: Fair Clinical Impression: Fall Qualifiers: Encounter type: initial encounter Qualified Code(s): W19.XXXA - Unspecified fall, initial encounter Shoulder contusion Qualifiers: Encounter type: sequela Laterality: left Qualified Code(s): S40.012S - Contusion of left shoulder, sequela Left wrist sprain Qualifiers: Encounter type: initial encounter Qualified Code(s): S63.502A - Unspecified sprain of left wrist, initial encounter UTI (urinary tract infection) Qualifiers: Urinary tract infection type: site unspecified Hematuria presence: without hematuria Qualified Code(s): N39.0 - Urinary tract infection, site not specified - Discharge Information Prescriptions: Cephalexin [Keflex] 500 mg PO TID #20 capsule Instructions: Wrist Sprain, Adult, Fall Prevention in the Home Referrals: Sunny Obrien MD [Primary Care Provider] - Forms: ED Department Discharge Additional Instructions: Drink plenty of water to maintain hydration, also to keep your bladder infection from turning into a kidney infection. Cephalexin antibiotic 500 mg 3 times daily for 1 week. Continue other medications as previously prescribed, Tylenol 2-3 times daily if needed for discomfort. Try see Dr. Obrien later this week or early next week for follow-up recheck. Call for appointment. Return to ED as needed if symptoms worsening in any way.
== END 2018-08-10 15:45 | disposition home or self-care (01) ==
LOC: JD.ED 13:25
DX: S40.012A Contusion of left shoulder, initial encounter (principal); S63.502A Unspecified sprain of left wrist, initial encounter; N39.0 Urinary tract infection, site not specified; W18.30XA Fall on same level, unspecified, initial encounter
CPT/HCPCS: 36415; 73030-26-LT; 73030-LT; 73110-26-LT; 73110-LT; 80053; 85025; 99282; 99283-25

== ENCOUNTER 2018-11-06 22:58 | Emergency (ER) | payer MEDICARE, OTHER ==
[2018-11-06 23:12] VITALS: BP 166/58
--- NOTE | 2018-11-06 23:30 | EDM.PDOC ---
ED HPI GENERAL MEDICAL PROBLEM - General Chief Complaint: ENT Problem Stated Complaint: LOST HEARING/CONFUSED Time Seen by Provider: 11/06/18 23:29 - History of Present Illness INITIAL COMMENTS - FREE TEXT/NARRATIVE: Patient presents emergency room with hearing loss and some confusion. Around 9:30 this evening the patient had some hearing loss and she has a pounding in her hearing. She cannot be certain which ear has the pounding or which one has the hearing loss. It is tough to get a history from her. The patient is coming down with viral upper respiratory illness. She has not had any dizziness with this. The patient denies any chest pain chest pressure breathing difficulty shortness of breath no nausea no vomiting or abdominal difficulties she may have a little bit more confusion since the onset of this. - Related Data Allergies Allergy/AdvReac Type Severity Reaction Status Date / Time No Known Allergies Allergy Verified 08/10/18 13:49 Home Meds: Home Meds Multivitamin [Multi-Vitamin Daily] 1 each PO DAILY 09/01/15 [History] Omeprazole 20 mg PO BEDTIME 09/01/15 [History] Potassium Chloride 20 meq PO BID 09/01/15 [History] Sennosides [Natural Vegetable Laxative] 8.6 mg PO BEDTIME PRN 09/01/15 [History] Apixaban [Eliquis] 2.5 mg PO BID 10/27/15 [History] LORazepam [Ativan] 1 mg PO Q6H PRN 12/15/15 [History] Gabapentin [Neurontin] 400 mg PO BID 05/11/17 [History] Pravastatin [Pravachol] 20 mg PO DAILY 05/11/17 [History] hydrALAZINE [Apresoline] 25 mg PO TID 05/11/17 [History] Hydrocodone/Acetaminophen [[place] 5-325 Tablet] 5 - 325 mg PO TID 04/13/18 [ History] Torsemide [Demadex] 10 mg PO DAILY 04/13/18 [History] Docusate Sodium [Colace] 100 mg PO DAILY PRN 08/07/18 [History] Metoprolol Tartrate 25 mg PO BID 08/07/18 [History] tiZANidine [Zanaflex] 2 mg PO TID 08/10/18 [History] Colchicine [Colcrys] 0.3 mg PO DAILY 06/07/19 [History] Diltiazem HCl [Cartia Xt] 240 mg PO DAILY 11/06/18 [History] Rosuvastatin Calcium 20 mg PO DAILY 11/06/18 [History] predniSONE [Prednisone] 60 mg PO Q24H #21 tablet 11/07/18 [Rx] Past Medical History HEENT History: Reports: Hard of Hearing, Impaired Vision, Other (See Below) Other HEENT History: has glasses "but I don't wear them very often". tinnitus Cardiovascular History: Reports: Afib, Blood Clots/VTE/DVT, High Cholesterol, Hypertension, Pacemaker Respiratory History: Reports: PE, SOB Gastrointestinal History: Reports: Chronic Constipation, Diverticulosis, Hemorrhoids Other Gastrointestinal History: hemorrhoidectomy Genitourinary History: Reports: Renal Calculus, UTI, Recurrent [employer]OR History: Reports: Musculoskeletal History: Reports: Back Pain, Chronic Other Musculoskeletal History: Chronic knee pain Neurological History: Reports: TIA, Vertigo Other Neuro History: ??TIA, had ear issues--ENT doctor thought maybe mini- stroke. Psychiatric History: Reports: Anxiety, Other (See Below) Other Psychiatric History: pt has been on chronic pain medicine due to pain in knee and lorazepam for anxiety Endocrine/Metabolic History: Reports: Diabetes, Type II Other Endocrine/Metabolic History: diet controlled, takes no meds. Hematologic History: Reports: None Immunologic History: Reports: None - Infectious Disease History Infectious Disease History: Reports: Chicken Pox, Measles - Past Surgical History Head Surgeries/Procedures: Reports: None HEENT Surgical History: Reports: Cataract Surgery Cardiovascular Surgical History: Reports: Pacer Respiratory Surgical History: Reports: None GI Surgical History: Reports: Appendectomy, Cholecystectomy, Colonoscopy Female Surgical History: Reports: Hysterectomy Neurological Surgical History: Reports: C-Spine Musculoskeletal Surgical History: Reports: Arthroscopic Knee, Hip Replacement, Knee Replacement, Shoulder Surgery Other Musculoskeletal Surgeries/Procedures:: Neck surgery Social & Family History - Family History HEENT: Reports: None Cardiac: Reports: None Musculoskeletal: Reports: Osteoarthritis Endocrine/Metabolic: Reports: Diabetes, Type I Oncologic: Reports: Bladder, Other (See Below) Other Oncologic Family History: 2 brothers and 1 sister had cancer, but unsure of type - Tobacco Use Smoking Status *Q: Never Smoker - Caffeine Use Caffeine Use: Reports: Coffee, Soda - Living Situation & Occupation Living situation: Reports: Occupation: Retired ED ROS ENT - Review of Systems Review Of Systems: See Below Constitutional: Reports: No Symptoms HEENT: Reports: Other (Increased tearing patient has hearing loss I believe from her left ear) Respiratory: Reports: No Symptoms Cardiovascular: Reports: No Symptoms Endocrine: Reports: No Symptoms GI/Abdominal: Reports: No Symptoms : Reports: No Symptoms Neurological: Reports: Other (Hearing loss) Psychiatric: Reports: No Symptoms ED EXAM, ENT - Physical Exam Exam: See Below Exam Limited By: No Limitations General Appearance: Alert, No Apparent Distress Eye Exam: Bilateral Eye: Normal Inspection Ears: Other (Mild cerumen in the right ear. With the patient's right ear plugged she has markedly diminished hearing with her left ear plugged makes minimal difference I'm assuming her hearing loss is out of the left ear) Nose: Normal Inspection, Normal Mucousa, No Blood Mouth/Throat: Normal Inspection, Normal Gums, Normal Oropharynx Head: Atraumatic, Normocephalic Neck: Normal Inspection, Supple, Non-Tender, Full Range of Motion. No: Lymphadenopathy (L), Lymphadenopathy (R) Respiratory/Chest: No Respiratory Distress, Lungs Clear, Normal Breath Sounds Cardiovascular: Regular Rate, Rhythm, No Edema, No Murmur GI/Abdominal: Normal Bowel Sounds, Soft, Non-Tender Extremities: Normal Inspection, Other (Trace pitting edema) Neurological: Alert, Other (She seems to be at baseline here in the emergency department) Psychiatric: Normal Affect, Normal Mood Lymphatic: No Adenopathy Course - Vital Signs Last Recorded V/S: Last Vital Signs Temp 36.8 C 11/06/18 23:11 Pulse 59 L 11/06/18 23:11 Resp 20 11/06/18 23:11 BP 166/58 H 11/06/18 23:11 Pulse Ox 95 11/06/18 23:11 - Orders/Labs/Meds Orders: Active Orders 24 hr Category Date Time Status Insert Urinary Catheter [OM.PC] Q24H Care 11/07/18 00:45 Ordered Urinary Catheter Assessment [RC] ASDIRECTED Care 11/07/18 00:34 Active Head wo Cont [CT] Stat Exams 11/06/18 23:42 Taken Labs: Laboratory Tests 11/06/18 11/06/18 11/06/18 Range/Units 23:50 23:50 23:50 WBC 7.97 (3.98-10.04) K/mm3 RBC 3.76 L (3.98-5.22) M/mm3 Hgb 11.9 (11.2-15.7) gm/L Hct 37.1 (34.1-44.9) % MCV 98.7 H D (79.4-94.8) fl MCH 31.6 (25.6-32.2) pg MCHC 32.1 L (32.2-35.5) g/dl RDW Std Deviation 50.4 H (36.4-46.3) fL Plt Count 241 (182-369) K/mm3 MPV 9.6 (9.4-12.3) fl Neutrophils % (Manual) 45 (40-60) % Band Neutrophils % 0 (0-10) % Lymphocytes % (Manual) 45 H (20-40) % Atypical Lymphs % 0 % Monocytes % (Manual) 6 (2-10) % Eosinophils % (Manual) 3 (0.7-5.8) % Basophils % (Manual) 1 (0.1-1.2) Platelet Estimate Adequate Plt Morphology Comment Normal Hypochromasia 1+ slight Anisocytosis 1+ slight Macrocytosis 1+ slight Ovalocytes 1+ slight RBC Morph Comment Not Reportable ESR 14 (0-20) mm/hr Sodium 144 (136-145) mEq/L Potassium 3.8 (3.5-5.1) mEq/L Chloride 108 H (98-107) mEq/L Carbon Dioxide 23 (21-32) mEq/L Anion Gap 16.8 H (5-15) BUN 27 H (7-18) mg/dL Creatinine 1.7 H (0.55-1.02) mg/dL Est Cr Clr Drug Dosing 18.09 mL/min Estimated GFR (MDRD) 28 (>60) mL/min BUN/Creatinine Ratio 15.9 (14-18) Glucose 135 H (83-115) mg/dL Calcium 8.7 (8.5-10.1) mg/dL Total Bilirubin 0.3 (0.2-1.0) mg/dL AST 23 (15-37) U/L ALT 22 (14-59) U/L Alkaline Phosphatase 68 (46-116) U/L C-Reactive Protein < 0.2 (<1.0) mg/dL Total Protein 6.7 (6.4-8.2) g/dl Albumin 3.6 (3.4-5.0) g/dl Globulin 3.1 gm/dL Albumin/Globulin Ratio 1.2 (1-2) Urine Color (Yellow) Urine Appearance (Clear) Urine pH (5.0-8.0) Ur Specific [place] (1.005-1.030) Urine Protein (Negative) Urine Glucose (UA) (Negative) Urine Ketones (Negative) Urine Occult Blood (Negative) Urine Nitrite (Negative) Urine Bilirubin (Negative) Urine Urobilinogen (0.2-1.0) Ur Leukocyte Esterase (Negative) Urine RBC (0-5) /hpf Urine WBC (0-5) /hpf Ur Squamous Epith Cells (0-5) /hpf Urine Bacteria (FEW) /hpf Urine Mucus (FEW) /hpf 11/07/18 Range/Units 00:30 WBC (3.98-10.04) K/mm3 RBC (3.98-5.22) M/mm3 Hgb (11.2-15.7) gm/L Hct (34.1-44.9) % MCV (79.4-94.8) fl MCH (25.6-32.2) pg MCHC (32.2-35.5) g/dl RDW Std Deviation (36.4-46.3) fL Plt Count (182-369) K/mm3 MPV (9.4-12.3) fl Neutrophils % (Manual) (40-60) % Band Neutrophils % (0-10) % Lymphocytes % (Manual) (20-40) % Atypical Lymphs % % Monocytes % (Manual) (2-10) % Eosinophils % (Manual) (0.7-5.8) % Basophils % (Manual) (0.1-1.2) Platelet Estimate Plt Morphology Comment Hypochromasia Anisocytosis Macrocytosis Ovalocytes RBC Morph Comment ESR (0-20) mm/hr Sodium (136-145) mEq/L Potassium (3.5-5.1) mEq/L Chloride (98-107) mEq/L Carbon Dioxide (21-32) mEq/L Anion Gap (5-15) BUN (7-18) mg/dL Creatinine (0.55-1.02) mg/dL Est Cr Clr Drug Dosing mL/min Estimated GFR (MDRD) (>60) mL/min BUN/Creatinine Ratio (14-18) Glucose (83-115) mg/dL Calcium (8.5-10.1) mg/dL Total Bilirubin (0.2-1.0) mg/dL AST (15-37) U/L ALT (14-59) U/L Alkaline Phosphatase (46-116) U/L C-Reactive Protein (<1.0) mg/dL Total Protein (6.4-8.2) g/dl Albumin (3.4-5.0) g/dl Globulin gm/dL Albumin/Globulin Ratio (1-2) Urine Color Yellow (Yellow) Urine Appearance Clear (Clear) Urine pH 5.5 (5.0-8.0) Ur Specific [place] 1.015 (1.005-1.030) Urine Protein Negative (Negative) Urine Glucose (UA) Negative (Negative) Urine Ketones Negative (Negative) Urine Occult Blood Negative (Negative) Urine Nitrite Negative (Negative) Urine Bilirubin Negative (Negative) Urine Urobilinogen 0.2 (0.2-1.0) Ur Leukocyte Esterase Negative (Negative) Urine RBC Not seen (0-5) /hpf Urine WBC 0-5 (0-5) /hpf Ur Squamous Epith Cells 0-5 (0-5) /hpf Urine Bacteria Rare (FEW) /hpf Urine Mucus Rare (FEW) /hpf Meds: Medications Discontinued Medications Generic Name Dose Route Start Last Admin Trade Name Cathy PRN Reason Stop Dose Admin Prednisone 60 mg 11/07/18 00:21 11/07/18 00:50 Prednisone PO 11/07/18 00:22 60 mg ONETIME ONE Administration - Re-Assessments/Exams Free Text/Narrative Re-Assessment/Exam: 11/07/18 02:[address] Benoit absolutely agrees with starting prednisone at this time 60 mg daily. This will be started. This was started before her workup is complete she had a head CT return no acute changes laboratory evaluation shows no cause of her hearing loss. Inflammatory markers are unremarkable. Patient is feeling better after receiving the prednisone approximately an hour afterwards however her hearing has not returned. I informed her and her daughter that it might take 12 hours before we see if the prednisone has any positive benefits I informed him in no uncertain terms that if this is a viral cause any hearing loss only 50% of the people regain some of the hearing out of the affected ear and the ones that do see improvement have anywhere from minimal improvement to complete resolution of the hearing loss. She is resting well at this time and would like to go home Departure - Departure Time of Disposition: 02:18 Disposition: Home, Self-Care 01 Clinical Impression: Hearing loss in left ear - Discharge Information Prescriptions: predniSONE [Prednisone] 60 mg PO Q24H #21 tablet Referrals: Sunny Obrien MD [Primary Care Provider] - Forms: ED Department Discharge - My Orders Last 24 Hours: My Active Orders 11/06/18 23:42 Head wo Cont [CT] Stat 11/07/18 00:34 Urinary Catheter Assessment [RC] ASDIRECTED 11/07/18 00:45 Insert Urinary Catheter [OM.PC] Q24H - Assessment/Plan Last 24 Hours: My Active Orders 11/06/18 23:42 Head wo Cont [CT] Stat 11/07/18 00:34 Urinary Catheter Assessment [RC] ASDIRECTED 11/07/18 00:45 Insert Urinary Catheter [OM.PC] Q24H
[2018-11-07] MEDS ORDERED: predniSONE 20 MG Tab PO ONE (00:21)
--- NOTE | 2018-11-08 19:35 | CT ---
Head CT Technique: Multiple axial sections were obtained from through the brain. Intravenous contrast was not utilized. Comparison: Prior head CT exam of 05/11/17. Findings: Ventricles along with basal cisterns and sulci over the convexities are mildly prominent. Minimal diminished density is noted within the periventricular white matter most likely representing small vessel ischemic demyelination change. No other abnormal parenchymal densities are appreciated. No evidence of intracranial hemorrhage. No midline shift or mass effect is seen. Bone window settings were reviewed which show no acute findings within the paranasal sinuses. No acute calvarial abnormality is appreciated. Impression: 1. Mild senescent change. No acute intracranial abnormality is identified. Diagnostic code #2 I agree with preliminary report from [facility], finalized on 11/07/18, 1:48 AM Central Time
== END 2018-11-07 02:28 | disposition home or self-care (01) ==
LOC: JD.ED 22:58
DX: H91.92 Unspecified hearing loss, left ear (principal); I10 Essential (primary) hypertension; I48.91 Unspecified atrial fibrillation; Z95.0 Presence of cardiac pacemaker; Z86.73 Personal history of transient ischemic attack (TIA), and cerebral infarction without residual deficits; Z79.899 Other long term (current) drug therapy; E11.9 Type 2 diabetes mellitus without complications; Z98.49 Cataract extraction status, unspecified eye; Z90.49 Acquired absence of other specified parts of digestive tract; Z90.710 Acquired absence of both cervix and uterus
CPT/HCPCS: 36415; 51701; 70450; 80053; 81001; 85007; 85027; 85652; 86140; 87086; 87088; 87186; 99284; A9270; 99283

== ENCOUNTER 2019-02-22 22:52 | Emergency (ER) | payer MEDICARE, OTHER ==
[2019-02-22 23:05] VITALS: BP 182/57; PULSE 58
[2019-02-23] MEDS ORDERED: predniSONE 20 MG Tab PO STA (00:13)
[2019-02-23] MEDS ORDERED: Loratadine 10 MG Tab PO ONE (00:13)
[2019-02-23] MEDS ORDERED: Famotidine 20 MG Tab PO ONE (00:14)
--- NOTE | 2019-02-23 00:18 | EDM.PDOC ---
ED HPI GENERAL MEDICAL PROBLEM - General Chief Complaint: Allergic Reaction Stated Complaint: ALLERGIC REACTION Time Seen by Provider: 02/22/19 23:52 Source of Information: Reports: Patient, Family (Daughter) History Limitations: Reports: Other (The patient is forgetful and a poor historian) - History of Present Illness INITIAL COMMENTS - FREE TEXT/NARRATIVE: Mrs. Penaloza is a pleasant 88-year-old woman with numerous medical problems, on numerous medications, who states that she developed generalized pruritus and an erythematous rash around 21:30 tonight. She has chronic dyspnea, worse on exertion, but states that her breathing is no worse than usual, and she has not been wheezing. She denies feeling lip, tongue, or throat swelling. No prior similar symptoms. Her 18:00 medications included KCl and metoprolol. She took 25 mg of diphenhydramine and her symptoms began. The patient's PCP is Dr. Sunny Obrien. - Related Data Allergies Allergy/AdvReac Type Severity Reaction Status Date / Time No Known Allergies Allergy Verified 02/22/19 23:05 Home Meds: Home Meds Multivitamin [Multi-Vitamin Daily] 1 each PO DAILY 09/01/15 [History] Omeprazole 20 mg PO DAILY 09/01/15 [History] Potassium Chloride 20 meq PO BID 09/01/15 [History] Sennosides [Natural Vegetable Laxative] 8.6 mg PO BEDTIME PRN 09/01/15 [History] Apixaban [Eliquis] 2.5 mg PO BID 10/27/15 [History] LORazepam [Ativan] 1 mg PO Q6H PRN 12/15/15 [History] Gabapentin [Neurontin] 400 mg PO BID 05/11/17 [History] hydrALAZINE [Apresoline] 25 mg PO TID 05/11/17 [History] Hydrocodone/Acetaminophen [Reasnor 5-325 Tablet] 5 - 325 mg PO TID 04/13/18 [ History] Torsemide [Demadex] 10 mg PO DAILY 04/13/18 [History] Docusate Sodium [Colace] 100 mg PO DAILY PRN 08/07/18 [History] Metoprolol Tartrate 50 mg PO BID 08/07/18 [History] tiZANidine [Zanaflex] 2 mg PO BID 08/10/18 [History] Colchicine [Colcrys] 0.3 mg PO DAILY 11/06/18 [History] Diltiazem HCl [Cartia Xt] 240 mg PO DAILY 11/06/18 [History] Rosuvastatin Calcium 20 mg PO DAILY 11/06/18 [History] Past Medical History HEENT History: Reports: Hard of Hearing, Impaired Vision, Other (See Below) Other HEENT History: has glasses "but I don't wear them very often". 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: Musculoskeletal History: Reports: Gout (suspected) Psychiatric History: Reports: Anxiety Endocrine/Metabolic History: Reports: Diabetes, Type II (diet-controlled), Obesity/BMI 30+ Hematologic History: Reports: Anticoagulation Therapy (Eliquis) - Infectious Disease History Infectious Disease History: Reports: Chicken Pox, Measles - Past Surgical History HEENT Surgical History: Reports: Cataract Surgery (bilateral) Cardiovascular Surgical History: Reports: Pacer GI Surgical History: Reports: Appendectomy, Cholecystectomy (around 1984), Colonoscopy (x 1), Other (See Below) (Hemorrhoidectomy) Female Surgical History: Reports: Hysterectomy (complete) Neurological Surgical History: Reports: C-Spine (ACDF + posterior surgery) Musculoskeletal Surgical History: Reports: Arthroscopic Knee (right), Hip Replacement (right), Knee Replacement (right), Shoulder Surgery (left, open) Social & Family History - Family History HEENT: Reports: None Cardiac: Reports: None Musculoskeletal: Reports: Osteoarthritis Endocrine/Metabolic: Reports: Diabetes, Type I Oncologic: Reports: Bladder, Other (See Below) Other Oncologic Family History: 2 brothers and 1 sister had cancer, but unsure of type - Tobacco Use Smoking Status *Q: Never Smoker - Caffeine Use Caffeine Use: Reports: Coffee, Soda - Alcohol Use Alcohol Use History: No - Recreational Drug Use Recreational Drug Use: No - Living Situation & Occupation Living situation: Reports: , with Spouse, with Family (Daughter) Occupation: Retired ED ROS ALLERGIC REACTION - Review of Systems Review Of Systems: ROS reveals no pertinent complaints other than HPI. GI/Abdominal: Reports: Constipation (chronic) Musculoskeletal: Reports: Back Pain (chronic) ED EXAM GENERAL NO PERIP PULSE - Physical Exam Exam: See Below Exam Limited By: No Limitations General Appearance: Alert, WD/WN, Mild Distress (Appears uncomfortable) Eye Exam: Bilateral Eye: EOMI, Normal Inspection Ears: Normal External Exam, Hearing Grossly Normal Nose: Normal Inspection Throat/Mouth: Normal Inspection, Normal Lips, Normal Teeth, Normal Gums, Normal Oropharynx, Normal Voice, No Airway Compromise Head: Atraumatic, Normocephalic Neck: Normal Inspection, Supple, Non-Tender, Full Range of Motion Respiratory/Chest: No Respiratory Distress, Lungs Clear, Normal Breath Sounds, No Accessory Muscle Use. No: Decreased Breath Sounds, Crackles, Rhonchi, Wheezing, Stridor, Prolonged Expiration Cardiovascular: Normal Peripheral Pulses, Regular Rate, Rhythm, No Gallop, No JVD, No Murmur, No Rub GI/Abdominal: Normal Bowel Sounds, Soft, Non-Tender, No Organomegaly, No Distention, No Abnormal Bruit, No Mass (Female) Exam: Deferred Rectal (Female) Exam: Deferred Back Exam: Normal Inspection, Full Range of Motion, NT Extremities: Normal Inspection, Normal Range of Motion, No Pedal Edema, Normal Capillary Refill Neurological: Alert, Oriented, Normal Cognition, No Motor/Sensory Deficits Psychiatric: Anxious Skin Exam: Warm, Dry, Intact, Other (There is erythema with likely excoriations to the patient's right axilla, and erythematous excoriations across the patient' s lower abdomen. No other rash is found.) Course - Vital Signs Last Recorded V/S: Last Vital Signs Temp 36.4 C 02/22/19 23:03 Pulse 58 L 02/22/19 23:03 Resp 18 02/22/19 23:03 BP 182/57 H 02/22/19 23:03 Pulse Ox 92 L 02/22/19 23:03 - Orders/Labs/Meds Meds: Medications Discontinued Medications Generic Name Dose Route Start Last Admin Trade Name Freq PRN Reason Stop Dose Admin Famotidine 20 mg 02/23/19 00:14 02/23/19 00:26 Pepcid PO 02/23/19 00:15 20 mg ONETIME ONE Administration Loratadine 10 mg 02/23/19 00:13 02/23/19 00:26 Claritin PO 02/23/19 00:14 10 mg ONETIME ONE Administration Prednisone 40 mg 02/23/19 00:13 02/23/19 00:27 Prednisone PO 02/23/19 00:14 40 mg ONETIME STA Administration - Re-Assessments/Exams Free Text/Narrative Re-Assessment/Exam: 02/23/19 00:15 The patient appears to be having an allergic reaction, but it is impossible for me to tell if it is due to one of the numerous medications she is on, or something that she ate. For tonight's purposes, the patient will receive 40 mg of oral prednisone, 10 mg of oral loratadine, and 20 mg of oral famotidine. We will provide ice packs for her to apply to particularly pruritic areas. There is no indication for epinephrine, as the patient has no angioedema, wheezing, or increased dyspnea. Ultimately, the patient will need to see an [facility] to determine what it is that she is allergic to. 02/23/19 01:19 The patient states that her itchiness has certainly improved. She would like to go home. I don't believe it would be in the patient's best interest to continue to have her on prednisone, as that will likely cause her blood glucoses to go significantly high, however, if her symptoms recur, which they might, the patient may need to be on prednisone for a longer period of time, and that would mean she would need to keep close control of her blood glucose, possibly starting some insulin. Since it does not make sense for the patient to keep coming back to the ED every time she has a recurrence, she will need to have this issue managed by her PCP until she can get in to see an [facility]. The patient's daughter will call to make an appointment in the morning. Departure - Departure Time of Disposition: 01:21 Disposition: Home, Self-Care 01 Condition: Good Clinical Impression: Allergic reaction - Discharge Information *PRESCRIPTION DRUG MONITORING PROGRAM REVIEWED*: Not Applicable *COPY OF PRESCRIPTION DRUG MONITORING REPORT IN PATIENT ESTELLA: Not Applicable Referrals: Sunny Obrien MD [Primary Care Provider] - Forms: ED Department Discharge Additional Instructions: Mrs. Penaloza was seen in the emergency room for an itchy rash. Based on her history and physical examination, she was most likely suffering from an allergic reaction to either a food or medicine. She was treated with prednisone, Claritin, and Pepcid in the ER. It is important to find out what food or medicine she is allergic to. Please have her follow-up with the Shrimp Trawler Dr. Remedios Brown, in [place], at the next available appointment. Before she gets into see Dr. Brown, she may have an another allergic reaction. If that happens, have her take [id number] Kelly as needed for itchiness. She may need to be on additional prednisone, and if so, this will cause her blood sugars to go high. Please have her follow-up with her PCP, Dr. Sunny Obrien, at the next available appointment, to coordinate that care. If any other problems, please do not hesitate to return Mrs. Penaloza to the ER.
== END 2019-02-23 01:45 | disposition home or self-care (01) ==
LOC: JD.ED 22:52
DX: T78.40XA Allergy, unspecified, initial encounter (principal); F41.9 Anxiety disorder, unspecified; I10 Essential (primary) hypertension; E11.9 Type 2 diabetes mellitus without complications; E66.9 Obesity, unspecified; Z90.710 Acquired absence of both cervix and uterus; Z79.899 Other long term (current) drug therapy; Z90.49 Acquired absence of other specified parts of digestive tract; Z68.33 Body mass index [BMI] 33.0-33.9, adult
CPT/HCPCS: 99283; A9270

== ENCOUNTER 2019-05-03 10:30 | Emergency (ER) | payer MEDICARE, OTHER ==
[2019-05-03 11:04] VITALS: BP 123/50; PULSE 60
[2019-05-03] MEDS ORDERED: Sulfamethoxazole/Trimethoprim 800-160 MG Tab PO ONE (11:17)
--- NOTE | 2019-05-03 11:27 | EDM.PDOC ---
ED HPI GENERAL MEDICAL PROBLEM - General Chief Complaint: Bite:Animal, Insect Stated Complaint: INSECT BITE ON EAR NOW INFECTED Time Seen by Provider: 05/03/19 10:52 Source of Information: Reports: Patient History Limitations: Reports: No Limitations - History of Present Illness INITIAL COMMENTS - FREE TEXT/NARRATIVE: Patient is an 89-year-old female who presents with her daughter with complaints of pain and swelling to her left outer ear. Patient states that back in December she was bit by an insect and that the wound has never totally healed. She has seen her primary care provider, Dr. Abbasi, on a number of occasions as well as a general surgeon, Dr. Serrano. They have been applying bacitracin ointment , as well as another [id number] antibiotic ointment. The patient and her daughter state that there is always been some form of a scab to the area, however this last Friday the area became increasingly erythematous and painful. Daughter states that she did contact Dr. Serrano's office on Friday and was advised that she should be seen by her primary care provider or the walk-in clinic to get started on antibiotics. The weather was bad over the weekend and the patient did not want to leave her house, therefore she was not seen on Friday. The patient has been afebrile and has not had any nausea, vomiting, or increased weakness. She takes Irving 3 times a day for chronic pain. - Related Data Allergies Allergy/AdvReac Type Severity Reaction Status Date / Time No Known Allergies Allergy Verified 05/03/19 10:54 Home Meds: Home Meds Multivitamin [Multi-Vitamin Daily] 1 each PO DAILY 09/01/15 [History] Omeprazole 20 mg PO DAILY 09/01/15 [History] Potassium Chloride 20 meq PO BID 09/01/15 [History] Sennosides [Natural Vegetable Laxative] 8.6 mg PO BEDTIME PRN 09/01/15 [History] Apixaban [Eliquis] 2.5 mg PO BID 10/27/15 [History] LORazepam [Ativan] 1 mg PO Q6H PRN 12/15/15 [History] Gabapentin [Neurontin] 400 mg PO BID 05/11/17 [History] hydrALAZINE [Apresoline] 25 mg PO TID 05/11/17 [History] Hydrocodone/Acetaminophen [Irving 5-325 Tablet] 5 - 325 mg PO TID 04/13/18 [ History] Torsemide [Demadex] 10 mg PO DAILY 04/13/18 [History] Docusate Sodium [Colace] 100 mg PO DAILY PRN 08/07/18 [History] Metoprolol Tartrate 25 mg PO BID 08/07/18 [History] tiZANidine [Zanaflex] 2 mg PO TID 08/10/18 [History] Colchicine [Colcrys] 0.3 mg PO DAILY 11/06/18 [History] Diltiazem HCl [Cartia Xt] 240 mg PO DAILY 11/06/18 [History] Rosuvastatin Calcium 20 mg PO DAILY 11/06/18 [History] Nitrofurantoin Monohyd/M-Cryst [Macrobid 100 mg Capsule] 1 cap PO Q12H #10 capsule 04/22/19 [Rx] Sulfamethoxazole/Trimethoprim [Sulfamethoxazole-Tmp Ds Tablet] 1 each PO BID #9 tablet 05/03/19 [Rx] Past Medical History HEENT History: Reports: Hard of Hearing, Impaired Vision, Other (See Below) Other HEENT History: has glasses "but I don't wear them very often". 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 Psychiatric History: Reports: Anxiety Other Psychiatric History: pt has been on chronic pain medicine due to pain in knee and lorazepam for anxiety Endocrine/Metabolic History: Reports: Diabetes, Type II, Obesity/BMI 30+ Other Endocrine/Metabolic History: diet controlled, takes no meds. Hematologic History: Reports: Anticoagulation Therapy Immunologic History: Reports: None Oncologic (Cancer) History: Reports: None Dermatologic History: Reports: None - Infectious Disease History Infectious Disease History: Reports: Chicken Pox, Measles, Shingles - Past Surgical History Head Surgeries/Procedures: Reports: None HEENT Surgical History: Reports: Cataract Surgery Cardiovascular Surgical History: Reports: Pacer GI Surgical History: Reports: Appendectomy, Cholecystectomy, Colonoscopy, Other (See Below) Female Surgical History: Reports: Hysterectomy Neurological Surgical History: Reports: C-Spine Musculoskeletal Surgical History: Reports: Arthroscopic Knee, Hip Replacement, Knee Replacement, Shoulder Surgery Social & Family History - Family History HEENT: Reports: None Cardiac: Reports: None Musculoskeletal: Reports: Osteoarthritis Endocrine/Metabolic: Reports: Diabetes, Type I Oncologic: Reports: Bladder, Other (See Below) Other Oncologic Family History: 2 brothers and 1 sister had cancer, but unsure of type - Tobacco Use Smoking Status *Q: Never Smoker Second Hand Smoke Exposure: No - Caffeine Use Caffeine Use: Reports: Coffee, Soda - Recreational Drug Use Recreational Drug Use: No - Living Situation & Occupation Living situation: Reports: , with Spouse, with Family (Daughter) Occupation: Retired ED ROS GENERAL - Review of Systems Review Of Systems: See Below Constitutional: Reports: No Symptoms. Denies: Fever, Chills, Weakness HEENT: Reports: Other (pain, errythema, and purulent drainage to left ear antihelix) Respiratory: Reports: No Symptoms Cardiovascular: Reports: No Symptoms Endocrine: Reports: No Symptoms GI/Abdominal: Reports: No Symptoms. Denies: Nausea, Vomiting : Reports: No Symptoms Musculoskeletal: Reports: No Symptoms Skin: Reports: Wound (left ear antihelix) Neurological: Reports: No Symptoms. Denies: Confusion, Dizziness Psychiatric: Reports: No Symptoms Hematologic/Lymphatic: Reports: No Symptoms Immunologic: Reports: No Symptoms ED EXAM, ANIMAL BITE - Physical Exam Exam: See Below Exam Limited By: No Limitations General Appearance: Alert, WD/WN, Mild Distress Ears: Hearing Grossly Normal, Normal TMs, Other (errythematous area with purulent drainage to left ear antihelix. Painful to touch.) Head: Atraumatic, Normocephalic. No: Facial Swelling, Facial Tenderness Respiratory/Chest: No Respiratory Distress, Lungs Clear, Normal Breath Sounds, No Accessory Muscle Use, Chest Non-Tender Cardiovascular: Normal Peripheral Pulses, Regular Rate, Rhythm, No Murmur GI/Abdominal: Normal Bowel Sounds, Soft, Non-Tender Neurological: Alert, Oriented, Normal Cognition Psychiatric: Normal Affect, Normal Mood Lymphatic: No Adenopathy Course - Vital Signs Last Recorded V/S: Last Vital Signs Temp 98.0 F 05/03/19 10:55 Pulse 60 05/03/19 10:55 Resp 18 05/03/19 10:55 BP 123/50 L 05/03/19 10:55 Pulse Ox 91 L 05/03/19 10:55 - Orders/Labs/Meds Orders: Active Orders 24 hr Category Date Time Status CULTURE WOUND [RM] Stat Lab 05/03/19 11:43 Ordered Meds: Medications Discontinued Medications Generic Name Dose Route Start Last Admin Trade Name Cathy PRN Reason Stop Dose Admin Trimethoprim/Sulfamethoxazole 1 tab 05/03/19 11:17 05/03/19 11:31 Septra Ds PO 05/03/19 11:18 1 tab ONETIME ONE Administration - Re-Assessments/Exams Free Text/Narrative Re-Assessment/Exam: Patient is a 89-year-old female who presents with her daughter with complaints of pain and erythema to the antihelix of the left ear. There is purulent drainage present from a scabbed area to the center of the wound. The surrounding tissue is red, warm and erythematous. A wound culture was obtained. We will start the patient on Bactrim DS 1 tablet twice daily for 5 days to cover for possible MRSA. I did recommend that they call to schedule appointment with Dr. Abbasi in 2 days for close follow-up. Discussed that they should return if there should be any worsening of the symptoms, or if she develops any new concerning symptoms. She does have Irving at home that she takes 3 times daily for chronic pain. I recommend that she continue to take these and that she may use [id number] ibuprofen as needed for pain. Discharge instructions as documented. Departure - Departure Time of Disposition: 11:31 Disposition: Home, Self-Care 01 Condition: Fair Clinical Impression: Cellulitis Qualifiers: Site of cellulitis: other site Qualified Code(s): L03.818 - Cellulitis of other sites - Discharge Information *PRESCRIPTION DRUG MONITORING PROGRAM REVIEWED*: No *COPY OF PRESCRIPTION DRUG MONITORING REPORT IN PATIENT ESTELLA: No Prescriptions: Sulfamethoxazole/Trimethoprim [Sulfamethoxazole-Tmp Ds Tablet] 1 each PO BID #9 tablet Instructions: Cellulitis, Adult, [id number] Referrals: Sunny Obrien MD [Primary Care Provider] - Forms: ED Department Discharge Additional Instructions: Take Bactrim DS 1 tab twice daily for 5 days. First dose was given in the emergency department today. A prescription for the remaining tablets has been sent to an [place] pharmacy in [facility]. Continue to take your Irving 3 times daily for pain. You may also use over-the- counter ibuprofen as needed for pain. Call to schedule an appointment with her primary care provider in 2 days to follow-up. If the symptoms should worsen or you develop any new or worsening symptoms such as fever, chills, nausea, vomiting, or increased weakness please return to the emergency department. - My Orders Last 24 Hours: My Active Orders 05/03/19 11:43 CULTURE WOUND [RM] Stat - Assessment/Plan Last 24 Hours: My Active Orders 05/03/19 11:43 CULTURE WOUND [RM] Stat
== END 2019-05-03 11:47 | disposition home or self-care (01) ==
LOC: JD.ED 10:30
DX: H60.12 Cellulitis of left external ear (principal); I48.91 Unspecified atrial fibrillation; E11.22 Type 2 diabetes mellitus with diabetic chronic kidney disease; I12.9 Hypertensive chronic kidney disease with stage 1 through stage 4 chronic kidney disease, or unspecified chronic kidney disease; N18.9 Chronic kidney disease, unspecified; F41.9 Anxiety disorder, unspecified; M10.9 Gout, unspecified; E66.9 Obesity, unspecified; Z68.34 Body mass index [BMI] 34.0-34.9, adult; Z79.01 Long term (current) use of anticoagulants; E78.00 Pure hypercholesterolemia, unspecified; Z86.73 Personal history of transient ischemic attack (TIA), and cerebral infarction without residual deficits; Z79.899 Other long term (current) drug therapy; Z86.711 Personal history of pulmonary embolism
CPT/HCPCS: 87070; 99283; A9270; 87077; 87186